=== PATIENT | male | born 1985 | race Caucasian/White ===

== ENCOUNTER → 2019-01-31 15:34 | Outpatient (CLI) | payer OTHER, SELFPAY ==
--- NOTE | 2019-01-31 15:35 | DI.RAD.S_ITS ---
PROCEDURE: XR FOOT RT MIN 3V INDICATIONS: heel pain TECHNIQUE: 3 views of the foot were acquired. COMPARISON: None. FINDINGS: Bones: No fractures or dislocations. No suspicious bony lesions. A small plantar calcaneal spur is present. Questionable erosive changes along the plantar aspect of the calcaneus just posterior to the spur. Soft tissues: No tibiotalar joint effusion. Achilles tendon appears normal. IMPRESSION: Mild inflammatory changes along the plantar surface of the calcaneus associated with spur. Dictated by: Zoraida Burrell M.D. on 01/31/2019 at 16:30 Approved by: Zoraida Burrell M.D. on 01/31/2019 at 16:31
== END ==
PROVIDERS: PCP Family Medicine; Visit Provider Family Medicine
DX: M79.671 Pain in right foot (principal); M77.31 Calcaneal spur, right foot
CPT/HCPCS: 73630

== ENCOUNTER 2019-04-13 09:16 | Emergency (ER) | payer OTHER, SELFPAY ==
[2019-04-13 09:20] VITALS: BP 121/72; PULSE 81; RESP 18; TEMP 37; O2SAT 99; BMI 22.5
--- NOTE | 2019-04-13 09:44 | DI.RAD.S_ITS ---
PROCEDURE: XR CHEST 2V INDICATIONS: CHEST TIGHTNESS NIGHT SWEATS TECHNIQUE: 2 views of the chest were acquired. COMPARISON: [facility], , CHEST 1 VIEW, 10/21/2016, 17:58. FINDINGS: Surgical changes and devices: None. Lungs and pleura: Lungs are clear. No pleural effusions or pneumothorax. Mediastinum: Mediastinal contours are normal. Heart size is normal. Bones and chest wall: No suspicious bony abnormalities. Soft tissues appear unremarkable. IMPRESSION: Normal for age, source of current chest tightness symptoms is not seen. Dictated by: Jaya Castillo M.D. on 04/13/2019 at 9:53 Approved by: Jaya Castillo M.D. on 04/13/2019 at 9:54
[2019-04-13 10:04] LABS: Add Manual Diff / Slide Review NO; Basophils Absolute Auto 0 /uL (0-100); Basophils Percent Auto 0.4 % (0-2); Eosinophils Absolute Auto 0 /uL (0-450); Eosinophils Percent Auto 0.5 % (2-4); Hematocrit 46.2 % (41-53); Hemoglobin 16.1 g/dL (13.5-17.5); Lymphocytes Absolute Auto 1100 /uL (1100-4500); Lymphocytes Percent Auto 10.8 % (25-40); Mean Corpuscular HGB Conc 34.9 % (30-36); Mean Corpuscular Hemoglobin 30.7 PG (26-34); Monocytes Absolute Auto 800 /uL (0-900); Monocytes Percent Auto 7.4 % (3-14); Neutrophils Absolute Auto 8300 /uL (1500-7000); Neutrophils Percent Auto 80.9 % (50-75); Platelet Count 155 X10^3/uL (150-400); Red Blood Cell Count 5.25 X10^6/uL (4.5-5.9); Red Cell Distribution Width 12.7 % (11.6-14.8); White Blood Cell Count 10.3 X10^3/uL (4.5-11.0)
--- NOTE | 2019-04-13 10:17 | ED.SKABFB ---
HPI - Skin/Abscess/Foreign Bdy General Chief complaint: Skin/Abscess/Foreign Body Stated complaint: Lump on neck, painful for over a week Time Seen by Provider: 04/13/19 09:33 Source: patient Mode of arrival: ambulatory Limitations: no limitations History of Present Illness HPI narrative: Patient presents with all swelling under his right chin. He has noted a lump there for about a month. He said it initially belted it went away he was seen by his PCP. However he has been having night sweats for the last month on and yesterday he started feeling this area again it has become more enlarged over night. He feels like sometimes it is difficult to swallow. He denies any sore throat. Sometimes he feels like his chest is tight but he denies any real fever no cough or shortness of breath. He denies any ear pain or sinus pain. Tylenol for it which has not been helping. He has a history of IBS a he does not like taking Motrin. He is feeling like he has body aches now or previously he did not feel that way. Onset (ago): month(s) (1) Location: neck (right submandibular) Severity: mild Relieving factors: none Exacerbating factors: none Related Data Home Medications Medication Instructions Recorded Confirmed No Known Home Medications 12/19/18 04/12/19 Allergies Allergy/AdvReac Type Severity Reaction Status Date / Time No Known Drug Allergies Allergy Verified 04/12/19 15:54 Review of Systems Review of Systems ROS Unobtainable: All systems reviewed & are unremarkable except as noted in HPI and below Constitutional Denies chills, Denies fever(s), Denies increased appetite, Denies lethargy, Reports night sweats, Denies poor appetite, Denies weakness, Denies weight gain and Denies weight loss ENT Ears, Nose, Mouth, and Throat: Reports as per HPI Respiratory Reports as per HPI, Denies cough, Denies stridor and Denies wheezing Gastrointestinal Gastrointestinal: Denies abdominal pain, Denies change in bowel habits, Denies diarrhea, Denies nausea and Denies vomiting Genitourinary Denies hematuria, Denies flank pain, Denies urinary incontinence and Denies urinary urgency Musculoskeletal Denies back pain, Denies muscle weakness, Denies numbness and Denies tingling Integumentary/Breasts Denies pruritus, Denies erythema, Denies rash and Denies wounds Neurologic Denies numbness, Denies tingling and Denies weakness Allergic/Immunologic Denies wheezing [facility] Medical History Asthma (Chronic ~1989) IBS (irritable bowel syndrome) (Chronic 2002) History of blood transfusion (Resolved 01/1983) Surgical History Anesthesia (Resolved) History of repair of anterior cruciate ligament of right knee (Resolved 09/2001) History of tonsillectomy (Resolved ~1989) Family History Father Age: 58 High cholesterol Grandfather Age: 80 Diabetes mellitus Heart disease High cholesterol Grandmother Age: 77 High cholesterol Mother Age: 58 High cholesterol Grandfather Age: 81 High cholesterol Grandmother Age: 80 High cholesterol Sister No problems noted. Social History marital status: Smoking Status: Never smoker alcohol intake: current (1-2 A MONTH ) substance use type: does not use Family History Father Age: 58 High cholesterol Grandfather Age: 80 Diabetes mellitus Heart disease High cholesterol Grandmother Age: 77 High cholesterol Mother Age: 58 High cholesterol Grandfather Age: 81 High cholesterol Grandmother Age: 80 High cholesterol Sister No problems noted. Social History marital status: Smoking Status: Never smoker alcohol intake: current (1-2 A MONTH ) substance use type: does not use Exam Initial Vital Signs Initial Vital Signs: Vital Signs Temperature 98.6 F 04/13/19 09:20 Pulse Rate 81 04/13/19 09:20 Respiratory Rate 18 04/13/19 09:20 Blood Pressure 121/72 04/13/19 09:20 Pulse Oximetry 99 04/13/19 09:20 GENERAL: Well-appearing, well-nourished and in no acute distress. HEENT: Head atraumatic,EOMI, pupils reactive, tender mobile right submandibular all lymph node. 1-2 cm in size. Airway patent EARS: Tympanic membranes visualized, no erythema or bulging, no hemotympanum PHARYNX: No erythema, no tonsillar exudate, no cervical lymphadenopathy CARDIOVASCULAR: Regular rate and rhythm without murmurs, rubs or gallops. RESPIRATORY: Breath sounds equal bilaterally, no wheezes rales or rhonchi. ABDOMEN: Soft, nontender. Normoactive bowel sounds all 4 quadrants. No guarding or rebound.s EXTREMITIES: Normal range of motion, no clubbing or edema. Neurovascularly intact NEUROLOGICAL: Alert and oriented x4.Normal gait and speech. Cranial nerves II through XII grossly intact. SKIN: Warm, dry, no laceration, no petechiae, no rashes or lesions. Course Orders Ordered: ED Orders 04/13/19 08:55 Complete Blood Count AUTO DIFF Stat Comprehensive Metabolic Panel Stat 04/13/19 09:44 XR chest 2V Stat Vital Signs - 8 hr 04/13/19 09:20 04/13/19 10:36 Temperature 98.6 F Pulse Rate 81 61 Respiratory Rate 18 16 Blood Pressure 121/72 Blood Pressure [Left Arm] 108/65 Pulse Oximetry 99 100 MDM - Skin/Abscess/Foreign Bdy Lab Data Attestation: I reviewed the patient's lab results. Result diagrams: 04/13/19 08:55 04/13/19 08:55 Lab Results 04/13/19 04/13/19 Range/Units 08:55 08:55 WBC 10.3 (4.5-11.0) X10^3/uL RBC 5.25 (4.5-5.9) X10^6/uL Hgb 16.1 (13.5-17.5) g/dL Hct 46.2 (41-53) % MCV 88.0 (80-100) fL MCH 30.7 (26-34) PG MCHC 34.9 (30-36) % RDW 12.7 (11.6-14.8) % Plt Count 155 (150-400) X10^3/uL Neut % (Auto) 80.9 H (50-75) % Lymph % (Auto) 10.8 L (25-40) % [place] % (Auto) 7.4 (3-14) % Eos % (Auto) 0.5 L (2-4) % Baso % (Auto) 0.4 (0-2) % Neut # (Auto) 8300 H (1701-1036) /uL Lymph # (Auto) 1100 (9629-8156) /uL [place] # (Auto) 800 (0-900) /uL Eos # (Auto) 0 (0-450) /uL Baso # (Auto) 0 (0-100) /uL Sodium 144 (137-145) mmol/L Potassium 4.8 (3.4-5.1) mmol/L Chloride 102 (98-107) mmol/L Carbon Dioxide 32 (22-32) mmol/L BUN 12 (9-20) mg/dL Creatinine 1.00 (0.66-1.25) mg/dL Estimated GFR > 60.0 (>60) mL/min BUN/Creatinine Ratio 12.0 (6-22) Glucose 98 (70-100) mg/dL Calcium 9.5 (8.4-10.2) mg/dL Total Bilirubin 1.7 H (0.2-1.3) mg/dL AST 34 (17-59) IU/L ALT 33 (21-72) IU/L Alkaline Phosphatase 66 (38-126) U/L Total Protein 7.9 (6.3-8.2) g/dL Albumin 4.8 (3.5-5.0) g/dL Globulin 3.1 (1.7-4.1) g/dL Albumin/Globulin Ratio 1.5 (1.0-2.8) Imaging Data Chest x-ray: Radiologist's impression: PROCEDURE: XR CHEST 2V INDICATIONS: CHEST TIGHTNESS NIGHT SWEATS TECHNIQUE: 2 views of the chest were acquired. COMPARISON: [facility], CHEST 1 VIEW, 10/21/2016, 17:58. FINDINGS: Surgical changes and devices: None. Lungs and pleura: Lungs are clear. No pleural effusions or pneumothorax. Mediastinum: Mediastinal contours are normal. Heart size is normal. Bones and chest wall: No suspicious bony abnormalities. Soft tissues appear unremarkable. IMPRESSION: Normal for age, source of current chest tightness symptoms is not seen. Dictated by: Jaya Castillo M.D. on 04/13/2019 at 9:53 MDM Narrative Medical decision making narrative: Overall patient does not appear septic or toxic. Lymph node is movable and tender to touch. At this time I think is more reactive. I recommended outpatient followup he actually has an appointment with his PCP tomorrow. He has an appointment already scheduled Discharge Plan Departure Patient Disposition: Home Clinical Impression: Lymphadenopathy Discharge Date/Time: 04/13/19 11:18 Interventions: ED Discharge Assessment Last Done: 04/13/19 11:18 Instructions: DI for Lymphadenopathy Activity Restrictions/Additional Instructions: *You have been diagnosed with lymphadenopathy *What to do: At this time blood work and x-ray are reassuring. No sign of infection. This is likely a reactive lymph node possible viral syndrome. If this continues you may require a biopsy please discuss with her PCP. *Continue to take medications as directed Ibuprofen 600 mg every 8 hours if needed for some mild pain it should help with the inflammation. *Follow up with your primary care provider in 2-3 days *Return to ER if you should have weight loss time more lymph nodes, inability to swallow or any new, worsening or concerning symptoms Prescriptions: No Action No Known Home Medications RF: 0 Referrals: Joseluis Jansen MD [Primary Care Provider] -
[2019-04-13 10:20] LABS: Alanine Aminotransferase 33 IU/L (21-72); Albumin 4.8 g/dL (3.5-5.0); Albumin Globulin Ratio 1.5 (1.0-2.8); Alkaline Phosphatase 66 U/L (38-126); Aspartate Aminotransferase 34 IU/L (17-59); Bilirubin Total 1.7 mg/dL (0.2-1.3); Blood Urea Nitrogen 12 mg/dL (9-20); Calcium 9.5 mg/dL (8.4-10.2); Carbon Dioxide 32 mmol/L (22-32); Chloride 102 mmol/L (98-107); Estimated Glomerular Filt Rate > 60.0 mL/min (>60); Globulin 3.1 g/dL (1.7-4.1); Glucose 98 mg/dL (70-100); HEMOLYSIS < 15 (0-50); Potassium 4.8 mmol/L (3.4-5.1); Sodium 144 mmol/L (137-145); Total Protein 7.9 g/dL (6.3-8.2)
[2019-04-13 10:36] VITALS: BP 108/65; PULSE 61; RESP 16; O2SAT 100
== END 2019-04-13 11:18 | disposition home or self-care (01) ==
PROVIDERS: Emergency Provider Emergency Medicine; PCP Family Medicine
DX: R59.1 Generalized enlarged lymph nodes (principal); R07.9 Chest pain, unspecified
CPT/HCPCS: 36415; 71046; 80053; 85025; 99282; 99284

== ENCOUNTER → 2019-04-17 09:17 | Outpatient (CLI) | payer OTHER, SELFPAY ==
--- NOTE | 2019-04-17 09:43 | DI.CT.S_ITS ---
PROCEDURE: CT SOFT TISSUE NECK WO CON INDICATIONS: RIGHT SALIVARY GLAND INFECTION TECHNIQUE: Non-contrast 3.0 mm axial sections acquired from the sella to the aortic arch. Additional oblique axial 3.0 mm sections acquired through the pharynx. 3 mm thick coronal and sagittal reformats were generated. For radiation dose reduction, the following was used: automated exposure control. COMPARISON: None. FINDINGS: Image quality: Excellent. Lymph nodes: There is a mass, potentially lymph node in the right submandibular region measuring 1.9 x 2.7 cm. There is extensive overlying edema with obscuration of well-defined fat planes. Edema extends the level of the thyroid cartilage caudally, and level of the maxillary teeth cranially. No other significant adenopathy in the neck is seen. Vessels: Non-opacified vessels appear normal in caliber. Neck spaces: The oropharynx, nasopharynx, and pharynx demonstrate no mucosal lesions. The vocal cords, false vocal cords, pyriform sinuses, epiglottis, vallecula, and tongue base all appear normal. Extramucosal spaces appear unremarkable. Glands: The contour of the right submandibular gland is not well-defined without IV contrast. The posterior portion appears normal. The anterior portion may be the enlarged mass seen in the submandibular region. The left submandibular gland appears normal. The parotid glands appear grossly normal, without stones. Thyroid gland is normal. Miscellaneous: Visualized brain and orbits appear normal. Lung apices appear clear. Superficial soft tissues appear normal. IMPRESSION: 1. Significantly enlarged probable right submandibular lymph node versus enlarged and bilobed right submandibular gland with moderate overlying edema. Anatomic margins or drainable fluid collection can not be well-defined without IV contrast. If there is persistence of swelling following appropriate treatment, examination with IV contrast is recommended. 2. No significant adenopathy. 3. Dentition appears normal. Dictated by: Zoraida Burrell M.D. on 04/17/2019 at 10:41 Approved by: Zoraida Burrell M.D. on 04/17/2019 at 10:54
== END ==
PROVIDERS: PCP Family Medicine; Visit Provider Family Medicine
DX: K11.20 Sialoadenitis, unspecified (principal); R59.0 Localized enlarged lymph nodes
CPT/HCPCS: 70490

== ENCOUNTER → 2019-10-26 09:33 | Outpatient (CLI) | payer OTHER, SELFPAY ==
[2019-10-26 10:29] LABS: Blood Urea Nitrogen 13 mg/dL (9-20); Calcium 9.3 mg/dL (8.4-10.2); Carbon Dioxide 32 mmol/L (22-32); Chloride 103 mmol/L (98-107); Estimated Glomerular Filt Rate > 60.0 mL/min (>60); Glucose 97 mg/dL (70-100); HEMOLYSIS < 15 (0-50); Potassium 4.5 mmol/L (3.4-5.1); Sodium 141 mmol/L (137-145)
[2019-10-26 10:33] LABS: Hemoglobin A1C% w Est Avg Glu 5.1 % (4.0-6.0)
== END ==
PROVIDERS: PCP Family Medicine; Visit Provider Family Medicine
DX: R35.8 Other polyuria (principal)
CPT/HCPCS: 36415; 80048; 83036

== ENCOUNTER → 2021-04-02 14:10 | Outpatient (CLI) | payer OTHER, SELFPAY ==
--- NOTE | 2021-04-02 14:11 | DI.RAD.S_ITS ---
PROCEDURE: XR WRIST LT MIN 3V INDICATIONS: L wrist injury, pain TECHNIQUE: 3 views of the wrist were acquired. COMPARISON: None. FINDINGS: Bones: No fractures or dislocations. No suspicious bony lesions. Scaphoid view: Scaphoid is intact. No evidence of osteonecrosis. Soft tissues: No suspicious soft tissue calcifications. IMPRESSION: No acute wrist fracture or dislocation. Dictated by: Jack Ramos M.D. on 04/02/2021 at 14:36 Approved by: Jack Ramos M.D. on 04/02/2021 at 14:41
== END ==
PROVIDERS: PCP Family Medicine; Referring Provider Physician Assistant; Visit Provider Physician Assistant
DX: S69.92XA Unspecified injury of left wrist, hand and finger(s), initial encounter (principal); X58.XXXA Exposure to other specified factors, initial encounter
CPT/HCPCS: 73110

== ENCOUNTER 2021-09-03 17:31 | Emergency (ER) | payer OTHER, SELFPAY ==
[2021-09-03 17:37] VITALS: BP 126/85; PULSE 59; RESP 12; TEMP 36.5; O2SAT 98; BMI 21.4
--- NOTE | 2021-09-03 17:39 | DI.RAD.S_ITS ---
PROCEDURE: XR CHEST 1V INDICATIONS: chest pain TECHNIQUE: One view of the chest was acquired. COMPARISON: [facility], CR, XR CHEST 2V, 04/13/2019, 9:46. FINDINGS: Surgical changes and devices: None. Lungs and pleura: Lungs are clear. No pleural effusions or pneumothorax. Mediastinum: Mediastinal contours appear normal. Heart size is normal. Bones and chest wall: No suspicious bony lesions. Overlying soft tissues appear unremarkable. IMPRESSION: No acute cardiopulmonary disease. Dictated by: Zoraida Burrell M.D. on 09/03/2021 at 18:14 Approved by: Zoraida Burrell M.D. on 09/03/2021 at 18:23
[2021-09-03 18:12] LABS: Add Manual Diff / Slide Review NO; Basophils Absolute Auto 0 /uL (0-100); Basophils Percent Auto 0.5 % (0-2); Eosinophils Absolute Auto 100 /uL (0-450); Eosinophils Percent Auto 1.5 % (2-4); Hematocrit 45.6 % (41-53); Hemoglobin 15.8 g/dL (13.5-17.5); INR 1.1 (0.9-1.3); Lymphocytes Absolute Auto 1700 /uL (1100-4500); Lymphocytes Percent Auto 37.2 % (25-40); Mean Corpuscular HGB Conc 34.6 % (30-36); Mean Corpuscular Volume 86.6 fL (80-100); Monocytes Absolute Auto 500 /uL (0-900); Monocytes Percent Auto 10.6 % (3-14); Neutrophils Absolute Auto 2300 /uL (1500-7000); Neutrophils Percent Auto 50.2 % (50-75); Platelet Count 138 X10^3/uL (150-400); Prothrombin Time 12.2 SECONDS (10.1-12.7); Red Blood Cell Count 5.27 X10^6/uL (4.5-5.9); Red Cell Distribution Width 12.6 % (11.6-14.8); White Blood Cell Count 4.6 X10^3/uL (4.5-11.0)
[2021-09-03 18:15] LABS: PTT Partial Thromboplastin Tim 33 SECONDS (26.4-36.2)
[2021-09-03 18:23] LABS: Alanine Aminotransferase 27 IU/L (<50); Albumin 4.9 g/dL (3.5-5.0); Albumin Globulin Ratio 1.6 (1.0-2.8); Alkaline Phosphatase 57 U/L (38-126); Aspartate Aminotransferase 30 IU/L (17-59); BUN Creatinine Ratio 15.1 (6-22); Bilirubin Total 1.9 mg/dL (0.2-1.3); Blood Urea Nitrogen 14 mg/dL (9-20); C-Reactive Protein Quant < 0.5 mg/dL (<1.0); Calcium 9.3 mg/dL (8.4-10.2); Carbon Dioxide 31 mmol/L (22-32); Chloride 101 mmol/L (98-107); Creatine Kinase 61 U/L (55-170); Estimated Glomerular Filt Rate > 60.0 mL/min (>60); Glucose 89 mg/dL (70-100); HEMOLYSIS < 15 (0-50); Lipase 120 U/L (23-300); Magnesium 2.2 mg/dL (1.6-2.3); Potassium 3.7 mmol/L (3.4-5.1); Sodium 140 mmol/L (137-145); Total Protein 7.9 g/dL (6.3-8.2)
[2021-09-03 18:31] LABS: D Dimer < 200 ng/mL (<230)
[2021-09-03 18:32] LABS: Troponin I < 0.012 ng/mL (0.01-0.034)
[2021-09-03 20:16] VITALS: BP 132/89; PULSE 66; RESP 18; O2SAT 100
[2021-09-03 21:33] VITALS: PULSE 65; RESP 17; O2SAT 99
[2021-09-03 21:42] VITALS: BP 131/74; PULSE 68; RESP 24; O2SAT 100
[2021-09-03 22:00] VITALS: BP 120/74; PULSE 68; RESP 21; O2SAT 100
[2021-09-03 22:30] VITALS: BP 117/70; PULSE 65; RESP 24; O2SAT 100
--- NOTE | 2021-09-03 22:36 | ED_ITS ---
HPI - Chest Pain General Chief Complaint: Chest Pain Stated Complaint: TIGHTNESS OF CHEST QUICK HEART BEAT Time Seen by Provider: 09/03/21 18:08 Source: patient Mode of arrival: Ambulatory History of Present Illness HPI narrative: Otherwise healthy 36-year-old gentleman with COVID infection diagnosed August 02. Getting back to work and has been increasing activities. Last week he noticed that he was able to do some yd work but was quite tired afterwards. This week he has tried some gentle jogging after working up to same distance is with walking and then noticed that he was having rapid heart rate for hours afterward. He had tried some plank exercises and again noted rapid heart rate for an extended period of time afterward. He is not complaining of fevers, cough, chills he is noting fatigue that continues to improve daily. No vomiting, diarrhea or dysuria. No headaches no orthopnea or dyspnea. Related Data Previous Rx's Medication Instructions Recorded fluticasone propionate 50 1 spray INTRANASAL BID #9.9 ml 10/30/20 mcg/actuation nasal spray,suspension (Flonase Allergy Relief) Allergies Allergy/AdvReac Type Severity Reaction Status Date / Time No Known Drug Allergies Allergy Verified 09/03/21 17:40 Review of Systems Review of Systems Narrative: Remainder of complete review of systems is otherwise unremarkable except for that included in the HPI. Patient History Medical History (Updated 09/03/21 @ 23:12 by Ranjana Francis MD) Asthma (~1989) COVID-19 History of blood transfusion (01/1983) IBS (irritable bowel syndrome) (2002) Surgical History Anesthesia History of repair of anterior cruciate ligament of right knee (09/2001) History of tonsillectomy (~1989) Family History Father Age: 61 High cholesterol Grandfather Age: 83 Diabetes mellitus Heart disease High cholesterol Grandmother Age: 80 High cholesterol Mother Age: 61 High cholesterol Grandfather Age: 84 High cholesterol Grandmother Age: 83 High cholesterol Sister No problems noted. Social History marital status: Smoking Status: Never smoker alcohol intake: current (1-2 A MONTH ) substance use type: does not use Smoking Status: Never smoker alcohol intake frequency: other Substance Use Type: does not use Exam Narrative Exam Narrative: General: Healthy appearing, in no acute distress. Able to give a complete and coherent history. Well-nourished well-developed HEENT: Moist mucous membranes, normal sclera with reactive pupils, Neck: No JVD, supple Respiratory: Lungs are clear to auscultation, no wheezing no rales no rhonchi. Full and symmetrical air movement Cardiac: Regular rate and rhythm no murmurs no bruits Abdomen: Soft, nontender, good bowel tones, no flank pain Skin: Warm and dry, no rashes Neurologic: Grossly neurologically intact with no obvious asymmetries or abnor malities Extremities: No trauma, well perfused Psych: Cooperative, appropriate insight and affect Initial Vital Signs Initial Vital Signs: Vital Signs Temperature 97.7 F 09/03/21 17:37 Pulse Rate 59 L 09/03/21 17:37 Respiratory Rate 12 09/03/21 17:37 Blood Pressure 126/85 09/03/21 17:37 Pulse Oximetry 98 09/03/21 17:37 Course Orders Ordered: ED Orders 09/03/21 17:39 XR chest 1V Stat EKG-12 Lead Stat 09/03/21 17:55 CRP [C-Reactive Protein Quant] Stat Complete Blood Count AUTO DIFF Stat Comprehensive Metabolic Panel Stat D Dimer Stat Lipase Stat Magnesium Stat Partial Thromboplastin Time Stat Prothrombin Time INR Stat Troponin & CK Cardiac Panel Stat Vital Signs Vital signs: Vital Signs - 8 hr 09/03/21 17:37 09/03/21 20:16 09/03/21 21:33 Temperature 97.7 F Pulse Rate 59 L 66 65 Respiratory Rate 12 18 17 Blood Pressure 126/85 132/89 Pulse Oximetry 98 100 99 09/03/21 21:42 09/03/21 22:00 09/03/21 22:30 Temperature Pulse Rate 68 68 65 Respiratory Rate 24 21 24 Blood Pressure 131/74 120/74 117/70 Pulse Oximetry 100 100 100 MDM - Chest Pain Lab Data Result diagrams: 09/03/21 17:55 09/03/21 17:55 Labs: Lab Results 09/03/21 09/03/21 09/03/21 Range/Units 17:55 17:55 17:55 WBC 4.6 (4.5-11.0) X10^3/uL RBC 5.27 (4.5-5.9) X10^6/uL Hgb 15.8 (13.5-17.5) g/dL Hct 45.6 (41-53) % MCV 86.6 (80-100) fL MCH 30.0 (26-34) PG MCHC 34.6 (30-36) % RDW 12.6 (11.6-14.8) % Plt Count 138 L (150-400) X10^3/uL Neut % (Auto) 50.2 (50-75) % Lymph % (Auto) 37.2 (25-40) % [place] % (Auto) 10.6 (3-14) % Eos % (Auto) 1.5 L (2-4) % Baso % (Auto) 0.5 (0-2) % Neut # (Auto) 2300 (6077-1547) /uL Lymph # (Auto) 1700 (7366-8088) /uL [place] # (Auto) 500 (0-900) /uL Eos # (Auto) 100 (0-450) /uL Baso # (Auto) 0 (0-100) /uL PT 12.2 (10.1-12.7) SECONDS INR 1.1 (0.9-1.3) APTT 33 (26.4-36.2) SECONDS D-Dimer < 200 (<230) ng/mL Sodium 140 (137-145) mmol/L Potassium 3.7 (3.4-5.1) mmol/L Chloride 101 (98-107) mmol/L Carbon Dioxide 31 (22-32) mmol/L BUN 14 (9-20) mg/dL Creatinine 0.93 (0.66-1.25) mg/dL Estimated GFR > 60.0 (>60) mL/min BUN/Creatinine Ratio 15.1 (6-22) Glucose 89 (70-100) mg/dL Calcium 9.3 (8.4-10.2) mg/dL Magnesium 2.2 (1.6-2.3) mg/dL Total Bilirubin 1.9 H (0.2-1.3) mg/dL AST 30 (17-59) IU/L ALT 27 (<50) IU/L Alkaline Phosphatase 57 (38-126) U/L Total Creatine Kinase 61 (55-170) U/L CK-MB (CK-2) TNP CK-MB (CK-2) Rel Index TNP Troponin I < 0.012 (0.01-0.034) ng/mL C-Reactive Protein < 0.5 (<1.0) mg/dL Total Protein 7.9 (6.3-8.2) g/dL Albumin 4.9 (3.5-5.0) g/dL Globulin 3.0 (1.7-4.1) g/dL Albumin/Globulin Ratio 1.6 (1.0-2.8) Lipase 120 (23-300) U/L Imaging Data Chest x-ray: Radiologist's Impression: FINDINGS:? ? Surgical changes and devices:? None.? ? Lungs and pleura:? Lungs are clear.? No pleural effusions or pneumothorax.? ? Mediastinum:? Mediastinal contours appear normal.? Heart size is normal.? ? Bones and chest wall:? No suspicious bony lesions.? Overlying soft tissues kathy ear unremarkable.? ? IMPRESSION:? No acute cardiopulmonary disease.? ? ? Dictated by: Zoraida Burrell M.D. on 09/03/2021 at 18:14 ? ? ECG Data Interpretation: Sinus rhythm at a rate of 61 Partial right bundle branch block No acute ischemic changes MDM Narrative Medical decision making narrative: 36-year-old otherwise healthy gentleman still having exertional dyspnea and palpitations after COVID-19 diagnosis 1 month ago. No evidence of acute coronar y syndrome, pericarditis, myocarditis, pneumothorax, bacterial superinfection, congestive heart failure or blood clots. Suspect that he is simply trying too much too soon and sure that with him. He is more than willing to slow down a bit and was simply looking for reassurance. Suggesting making sure that he was hydrating well before exercising to try to avoid the extended periods elevated heart rate and continuing to hydrate well throughout the day. Suggested he back down little bit on overall exertion and allow his body to completely recover. Questions are answered and he is safe for home discharge Discharge Plan Departure Patient Disposition: Home Clinical Impression: Post-COVID chronic fatigue, Heart palpitations Instructions: DI for Arrhythmias Activity Restrictions/Additional Instructions: Thank you for coming in today I am not seeing any life-threatening explanations for the elevated heart rate your seeing after exercise this week. Specifically, there is no evidence of a bacterial pneumonia, no heart attack or heart attack like syndrome, no blood clots in your lungs, no inflammation around your heart, no inflammation of your heart and no evidence of a collapsed lung. I suspect that you some clear trying a bit too much too soon. I would recommend making sure that you hydrate well before you exercise as well as throughout the day. I know it is challenging but slowing down the exercise a bit will go a long way in getting back to the exercise levels that you were out prior to COVID. I wish you the best Prescriptions: No Action fluticasone propionate [Flonase Allergy Relief] 50 mcg/actuation spray,suspension 1 spray intranasal BID Qty: 9.9 1RF Rx Instructions: administer one spray into each nostril twice daily. Referrals: Joseluis Jansen MD [Primary Care Provider] -
== END 2021-09-03 23:18 | disposition home or self-care (01) ==
PROVIDERS: Emergency Medicine; Emergency Provider Emergency Medicine; PCP Family Medicine
DX: R07.9 Chest pain, unspecified (principal); R53.83 Other fatigue; R00.2 Palpitations; Z86.16 Personal history of COVID-19
CPT/HCPCS: 36415; 71045; 80053; 82550; 83690; 83735; 84484; 85025; 85379; 85610; 85730; 86140; 93005; 99284

== ENCOUNTER → 2022-11-04 16:19 | Outpatient (CLI) | payer OTHER, SELFPAY ==
--- NOTE | 2022-11-04 16:21 | DI.RAD.S_ITS ---
PROCEDURE: XR SHOULDER LT MIN 2V INDICATIONS: Left shoulder pain/strain TECHNIQUE: 3 views of the shoulder were acquired. COMPARISON: None. FINDINGS: Bones: No fractures or dislocations. No suspicious bony lesions. Visualized ribs appear intact. Soft tissues: No suspicious soft tissue calcifications. IMPRESSION: No trauma found. Dictated by: Jaya Castillo M.D. on 11/04/2022 at 17:09 Approved by: Jaya Castillo M.D. on 11/04/2022 at 17:09
== END ==
PROVIDERS: PCP Family Medicine; Referring Provider Physician Assistant; Visit Provider Physician Assistant
DX: M25.512 Pain in left shoulder (principal)
CPT/HCPCS: 73030

== ENCOUNTER → 2022-11-25 09:22 | Outpatient (CLI) | payer OTHER, SELFPAY ==
[2022-11-25 10:17] LABS: Influenza A - CEPHEID Flu A NEGATIVE (NEGATIVE); Influenza B - CEPHEID Flu B NEGATIVE (NEGATIVE); Respiratory Syncytial Virus Negative (Negative)
[2022-11-25 10:20] LABS: COVID-19 CEPHEID 4-PLEX PCR Negative (Negative)
== END ==
PROVIDERS: PCP Family Medicine; Visit Provider Registered Nurse
DX: R09.81 Nasal congestion (principal); Z20.822 Contact with and (suspected) exposure to COVID-19
CPT/HCPCS: 0241U

== ENCOUNTER 2023-03-09 09:49 | Emergency (ER) | payer OTHER, SELFPAY ==
[2023-03-09 09:53] VITALS: BP 115/74; PULSE 68; RESP 15; TEMP 37; O2SAT 98
--- NOTE | 2023-03-09 09:59 | DI.RAD.S_ITS ---
PROCEDURE: XR CHEST 1V INDICATIONS: dizziness and blurry vision TECHNIQUE: One view of the chest was acquired. COMPARISON: [facility], CR, XR CHEST 1V, 09/03/2021, 17:50. FINDINGS: Surgical changes and devices: None. Lungs and pleura: Lungs are clear. No pleural effusions or pneumothorax. Mediastinum: Mediastinal contours appear normal. Heart size is normal. Bones and chest wall: No suspicious bony lesions. Overlying soft tissues appear unremarkable. IMPRESSION: No acute cardiopulmonary abnormalities or focal airspace disease. Dictated by: Hieu Abel M.D. on 03/09/2023 at 10:26 Approved by: Hieu Abel M.D. on 03/09/2023 at 10:26
--- NOTE | 2023-03-09 10:05 | ED.DIZZY ---
HPI - Dizziness General Chief Complaint: Dizziness Stated Complaint: Monday, dizzy spells, can't walk, can't see Time Seen by Provider: 03/09/23 09:58 Source: patient Mode of arrival: Wheelchair History of Present Illness HPI Narrative: 38-year-old male nonsmoker with history of seasonal allergies presents with his in the chief complaint of gradually worsening dizziness over the past few days. He denies any recent trauma but does state that a few months ago he was diagnosed with a concussion. He is had no headache no fever, no neck pain. He states that he has significant dizziness which he describes as the room spinning which is significantly worsened when he turns his head. He experiences relief if he sits still and if he keeps his eyes closed. He denies any numbness, tingling or weakness of his extremities, he has no chest pain, palpitations or shortness of breath. He denies any new medications or dietary change. He does admit that he has at times have nasal congestion and some sense of allergies. Related Data Previous Rx's Medication Instructions Recorded ipratropium bromide 42 mcg (0.06 2 spray intranasal TID PRN allergy 01/10/23 %) nasal spray symptoms #15 mL meclizine 25 mg tablet 25 mg PO BID-TID PRN dizziness #14 03/09/23 tabs Allergies Allergy/AdvReac Type Severity Reaction Status Date / Time No Known Drug Allergies Allergy Verified 03/09/23 09:53 Review of Systems Review of Systems Narrative: GENERAL: Denies chills, fatigue, malaise, fever, sweats. HEENT: See HPI RESPIRATORY: Denies dyspnea, cough, wheezing, hemoptysis, sputum. CARDIOVASCULAR: Denies chest pain, palpitations, orthopnea, edema, GASTROINTESTINAL: Denies nausea, vomiting, abdominal pain, diarrhea, constipation, melena. : Denies dysuria, frequency, incontinence, hematuria, urinary retention. MUSCULOSKELETAL: denies weakness, joint pain, or bony pain SKIN: Denies rash, skin lesions, or other NEUROLOGIC: See HPI PSYCHIATRIC: No concerning psychosocial issues. 12 point review of systems is negative except for those stated above Patient History Medical History Asthma (~1989) COVID-19 History of blood transfusion (01/1983) IBS (irritable bowel syndrome) (2002) Surgical History Anesthesia History of repair of anterior cruciate ligament of right knee (09/2001) History of tonsillectomy (~1989) Family History Father Age: 62 High cholesterol Grandfather Age: 84 Diabetes mellitus Heart disease High cholesterol Grandmother Age: 81 High cholesterol Mother Age: 62 High cholesterol Grandfather Age: 85 High cholesterol Grandmother Age: 84 High cholesterol Sister No problems noted. Social History marital status: Smoking Status: Never smoker alcohol intake: current (1-2 A MONTH ) substance use type: does not use Smoking Status: Never smoker alcohol intake frequency: other Substance Use Type: does not use Exam Narrative Exam Narrative: GENERAL: [38] year old patient appears stated age. Well-developed patient, in mild distress. HEAD: Atraumatic. Normocephalic. EYES: Pupils equal round and reactive. Extraocular motions intact. No scleral icterus. No injection or drainage. Lateral gaze nystagmus with fast wish to the right, most notable when turning head to the right, also reproducible and turning head to the left, fades after 1-2 minutes ENT: Nose without bleeding, purulent drainage. Throat without erythema, tonsillar hypertrophy or exudate. Clear postnasal drainage NECK: Trachea midline. Non tender CARDIOVASCULAR: Regular rate and rhythm without murmurs, gallops, or rubs. RESPIRATORY: Clear to auscultation. Breath sounds equal bilaterally. No wheezes, rales, or rhonchi. GASTROINTESTINAL: Abdomen soft, non-tender, nondistended. EXTREMITIES: No edema or joint tenderness. BACK: Nontender without deformity or crepitance. No flank tenderness. NEURO: AOx3. SKIN: No rash or erythema of visible areas NIH Stroke Scale 1a. LOC: Patient is alert and keenly responsive (0) 1b. LOC Questions: Patient answers both LOC questions accurately (0) 1c. LOC Commands: Patient performs both tasks correctly (0) 2. Best Gaze: Normal (0) 3. Visual: No visual loss (0) 4. Facial palsy: Normal symmetrical movements (0) 5. Motor arm: No drift (0) 6. Motor leg: No drift (0) 7. Limb ataxia: Absent (0) 8. Sensory: Normal (0) 9. Best language: No aphasia; normal (0) 10. Dysarthria: Normal (0) 11. Extinction and inattention: No abnormality (0) NIHSS: 0 Initial Vital Signs Initial Vital Signs: Vital Signs Temperature 98.6 F 03/09/23 09:53 Pulse Rate 68 03/09/23 09:53 Respiratory Rate 15 03/09/23 09:53 Blood Pressure 115/74 03/09/23 09:53 Pulse Oximetry 98 03/09/23 09:53 Oxygen Delivery Method Room Air 03/09/23 09:53 Course Orders Ordered: Discontinued Medications Aspirin (Aspirin 81 Mg Chew Tab) 324 mg PO NOW ONE Stop: 03/09/23 10:00 Last Admin: 03/09/23 11:16 Dose: Not Given Documented By: KELLY Sodium Chloride (Normal Saline 0.9%) 1,000 mls @ 1,000 mls/hr IV BOLUS ONE Stop: 03/09/23 11:05 Last Infusion: 03/09/23 11:16 Dose: 0 mls/hr Documented By: Admin: 03/09/23 10:27 Dose: 1,000 mls/hr Documented By: KELLY Meclizine HCl (Meclizine Hcl 12.5 Mg Tablet) 50 mg PO NOW ONE Stop: 03/09/23 10:07 Last Admin: 03/09/23 10:20 Dose: 50 mg Documented By: KELLY Reevaluation(s) Reevaluation #1: Significant though not complete improvement after above-stated therapies Vital Signs Vital signs: Vital Signs - 8 hr 03/09/23 09:53 Temperature 98.6 F Pulse Rate 68 Respiratory Rate 15 Blood Pressure 115/74 Pulse Oximetry 98 Oxygen Delivery Method Room Air MDM - Dizziness Lab Data 03/09/23 10:02 03/09/23 10:02 Labs: Lab Results 03/09/23 03/09/23 03/09/23 Range/Units 10:02 10:02 10:02 WBC 4.5 (4.5-11.0) X10^3/uL RBC 5.29 (4.5-5.9) X10^6/uL Hgb 16.2 (13.5-17.5) g/dL Hct 46.3 (41-53) % MCV 87.5 (80-100) fL MCH 30.6 (26-34) PG MCHC 35.0 (30-36) % RDW 13.1 (11.6-14.8) % Plt Count 157 (150-400) X10^3/uL Neut % (Auto) 57.8 (50-75) % Lymph % (Auto) 31.3 (25-40) % Door % (Auto) 8.3 (3-14) % Eos % (Auto) 2.0 (2-4) % Baso % (Auto) 0.6 (0-2) % Neut # (Auto) 2600 (2979-6117) /uL Lymph # (Auto) 1400 (1340-4837) /uL Door # (Auto) 400 (0-900) /uL Eos # (Auto) 100 (0-450) /uL Baso # (Auto) 0 (0-100) /uL PT 11.7 (10.1-12.7) SECONDS INR 1.0 (0.9-1.3) APTT 32 (26-36) SECONDS Sodium 141 (137-145) mmol/L Potassium 3.9 (3.4-5.1) mmol/L Chloride 104 (98-107) mmol/L Carbon Dioxide 31 (22-32) mmol/L BUN 11 (9-20) mg/dL Creatinine 0.95 (0.66-1.25) mg/dL Estimated GFR > 60 (>60) mL/min BUN/Creatinine Ratio 11.6 (6-22) Glucose 103 H (70-100) mg/dL Calcium 8.9 (8.4-10.2) mg/dL Magnesium 2.2 (1.6-2.3) mg/dL Total Bilirubin 1.9 H (0.2-1.3) mg/dL AST 28 (17-59) IU/L ALT 27 (<50) IU/L Alkaline Phosphatase 59 (38-126) U/L Total Creatine Kinase 76 (55-170) U/L CK-MB (CK-2) TNP CK-MB (CK-2) Rel Index TNP Troponin I < 0.012 (0.01-0.034) ng/mL Total Protein 7.4 (6.3-8.2) g/dL Albumin 4.6 (3.5-5.0) g/dL Globulin 2.8 (1.7-4.1) g/dL Albumin/Globulin Ratio 1.6 (1.0-2.8) Lipase 89 (23-300) U/L MDM Narrative Medical decision making narrative: CC: 38-year-old male with dizziness Complicating co-morbidities: None noted Data collected from: Patient Medical records reviewed: Prior notes reviewed in our EMR Differential considered, but not limited to: Peripheral vertigo does including BPPV, labyrinthitis versus traumatic BPPV versus electrolyte abnormality, dehydration, stroke, cardiac disease versus other Exam documented above, pertinent findings include: Well-hydrated and alert, reproducible and fatigable vertigo with associated horizontal nystagmus with fast twitch to the right, no other neurologic symptoms Lab Test results independently reviewed as above. Pertinent findings: No significant abnormal findings requiring specific intervention Independently reviewed EKG as above Imaging studies independently reviewed: Head CT unremarkable Scores Used: NIHSS Treatments: Meclizine Re-evaluations: improved, but not completely Discussion: Patient with reproducible dizziness in the absence of other neurologic symptoms. Multiple diagnoses considered as noted above. Peripheral vertigo the primary focused given reproducibility, fatigability, noted horizontal nystagmus and improvement with fluids and meclizine. His labs and imaging are very reassuring. Other diagnoses, primarily posterior stroke discussed at length at the bedside. We discussed that this is on my rate are but a much lower likelihood given his history, physical and response to therapies. We did discuss the risks and benefits of further workup including the potential need for MRI, echocardiogram and hospitalization, the fact that if it were this diagnosis his symptoms are improving, mild at worst, and we are well outside of any interventional window. This all being said we elect to hold the course and continue treating for peripheral vertigo, he is given extensive return precautions including worsening of current symptoms, additional neurologic symptoms including blurred vision, trouble speech, facial weakness, ataxia among others. He has a local primary care provider and will follow closely Disposition: see below, along with detailed discharge instructions that have been reviewed with patient as well as indications for ED re-evaluation and additional outpatient follow up Discharge Plan Departure Patient Disposition: Home Clinical Impression: Peripheral vertigo Instructions: DI for Vertigo Activity Restrictions/Additional Instructions: *You have been diagnosed with [dizziness related to peripheral vertigo. As we discussed your history and physical exam are very reassuring. Your labs and imaging are also unremarkable and there is no evidence of electrolyte abnormality, bleeding in your brain or other significant finding that requires a specific and immediate intervention] *What to do: *Please continue to take your regular medications as directed. [x ] New medication prescriptions sent to your pharmacy: [ [facility]] [ ] New medication written as a paper prescription [ ] No new medications given *Please follow up with your primary care provider in 2-3 days, call for an appointment. Let them know you were seen in the Emergency Department and that we ask that you be seen in follow up. We will electronically transmit a record of today's note if your PCP is in our system Also, as we discussed it would be reasonable to follow up with Dr. Rubio at [facility]. I will electronically transmitted a copy of today's note to their office as well. *Return to Emergency Department if you should have any new, worsening or concerning symptoms, such as [fever greater than 101 F, shaking chills, worsening pain, persistent vomiting or other bothersome symptoms] Prescriptions: New meclizine 25 mg tablet 25 mg PO BID-TID PRN (Reason: dizziness) Qty: 14 0RF No Action ipratropium bromide 42 mcg (0.06 %) spray,non-aerosol 2 spray intranasal TID PRN (Reason: allergy symptoms) Qty: 15 0RF Rx Instructions: administer into each nostril Referrals: Saravanan Rubio MD [Physician] - Joseluis Jansen MD [Primary Care Provider] - Stand Alone Forms: Patient Portal/API
--- NOTE | 2023-03-09 10:06 | DI.CT.S_ITS ---
PROCEDURE: CT HEAD/BRAIN WO CON INDICATIONS: dizziness TECHNIQUE: Noncontrast 4.5 mm thick angled axial sections acquired from the foramen magnum to the vertex, with coronal and sagittal reformats. For radiation dose reduction, the following was used: automated exposure control, adjustment of mA and/or kV according to patient size. COMPARISON: None. FINDINGS: Image quality: Excellent. CSF spaces: Basal cisterns are patent. No extra-axial fluid collections. Ventricles are normal in size and shape. Brain: No midline shift. No intracranial masses or hemorrhage. [place]pe[place]-white matter interface is normal. Skull and face: Calvarium and visualized facial bones are intact, without suspicious lesions. Sinuses: Visualized sinuses and mastoids are clear. IMPRESSION: CT head without acute intracranial abnormalities. No mass or mass effect visualized. Dictated by: Hieu Abel M.D. on 03/09/2023 at 10:26 Approved by: Hieu Abel M.D. on 03/09/2023 at 10:28
[2023-03-09 10:19] LABS: Prothrombin Time 11.7 SECONDS (10.1-12.7)
[2023-03-09 10:20] LABS: Add Manual Diff / Slide Review NO; Basophils Absolute Auto 0 /uL (0-100); Basophils Percent Auto 0.6 % (0-2); Eosinophils Absolute Auto 100 /uL (0-450); Hematocrit 46.3 % (41-53); Hemoglobin 16.2 g/dL (13.5-17.5); Lymphocytes Absolute Auto 1400 /uL (1100-4500); Lymphocytes Percent Auto 31.3 % (25-40); Mean Corpuscular Hemoglobin 30.6 PG (26-34); Mean Corpuscular Volume 87.5 fL (80-100); Monocytes Absolute Auto 400 /uL (0-900); Monocytes Percent Auto 8.3 % (3-14); Neutrophils Absolute Auto 2600 /uL (1500-7000); Neutrophils Percent Auto 57.8 % (50-75); Platelet Count 157 X10^3/uL (150-400); Red Blood Cell Count 5.29 X10^6/uL (4.5-5.9); Red Cell Distribution Width 13.1 % (11.6-14.8); White Blood Cell Count 4.5 X10^3/uL (4.5-11.0)
[2023-03-09] MEDS: MECLIZINE HCL 12.5 MG TABLET 50 MG PO (10:20)
[2023-03-09 10:26] LABS: Alanine Aminotransferase 27 IU/L (<50); Albumin 4.6 g/dL (3.5-5.0); Albumin Globulin Ratio 1.6 (1.0-2.8); Alkaline Phosphatase 59 U/L (38-126); Aspartate Aminotransferase 28 IU/L (17-59); BUN Creatinine Ratio 11.6 (6-22); Bilirubin Total 1.9 mg/dL (0.2-1.3); Blood Urea Nitrogen 11 mg/dL (9-20); Calcium 8.9 mg/dL (8.4-10.2); Carbon Dioxide 31 mmol/L (22-32); Chloride 104 mmol/L (98-107); Creatine Kinase 76 U/L (55-170); Estimated Glomerular Filt Rate > 60 mL/min (>60); Globulin 2.8 g/dL (1.7-4.1); Glucose 103 mg/dL (70-100); HEMOLYSIS < 15 (0-50); Lipase 89 U/L (23-300); Magnesium 2.2 mg/dL (1.6-2.3); Potassium 3.9 mmol/L (3.4-5.1); Sodium 141 mmol/L (137-145); Total Protein 7.4 g/dL (6.3-8.2)
[2023-03-09] MEDS: SODIUM CHLORIDE 0.9% 1,000 ML 1000 ML IV (10:27)
[2023-03-09 10:36] LABS: Troponin I < 0.012 ng/mL (0.01-0.034)
[2023-03-09 10:39] LABS: PTT Partial Thromboplastin Tim 32 SECONDS (26-36)
== END 2023-03-09 12:15 | disposition home or self-care (01) ==
PROVIDERS: Emergency Provider Emergency Medicine; PCP Family Medicine
DX: H81.399 Other peripheral vertigo, unspecified ear (principal); I45.10 Unspecified right bundle-branch block
CPT/HCPCS: 70450; 71045; 80053; 82550; 83690; 83735; 84484; 85025; 85610; 85730; 93005; 93010; 99284

== ENCOUNTER 2023-09-09 22:39 | Emergency (ER) | payer OTHER, SELFPAY ==
[2023-09-09 22:49] VITALS: BP 144/86; PULSE 69; RESP 18; TEMP 36.9; O2SAT 99; BMI 21.9
--- NOTE | 2023-09-09 22:54 | DI.RAD.S_ITS ---
PROCEDURE: XR CHEST 1V INDICATIONS: Chest pain TECHNIQUE: One view of the chest was acquired. COMPARISON: [facility], CR, XR CHEST 1V, 03/09/2023, 9:56. [facility], CR, XR CHEST 1V, 09/03/2021, 17:50. FINDINGS: Surgical changes and devices: None. Lungs and pleura: Lungs are clear. No pleural effusions or pneumothorax. Mediastinum: Mediastinal contours appear normal. Heart size is normal. Bones and chest wall: No suspicious bony lesions. Overlying soft tissues appear unremarkable. IMPRESSION: No acute cardiopulmonary abnormality is seen. Approved by: Henok Nolen M.D. on 09/09/2023 at 23:15
[2023-09-09 23:32] VITALS: PULSE 60; O2SAT 97
--- NOTE | 2023-09-09 23:33 | ED_ITS ---
HPI - Arrhythmia/Palpitations General Chief Complaint: Arrhythmia/Palpitations Stated Complaint: Rapid heart rate Time Seen by Provider: 09/09/23 22:51 Source: patient Mode of arrival: Ambulatory History of Present Illness HPI narrative: Patient is a 38-year-old male. Was at his normal state of health. Was sitting on the couch watching TV when he had a fairly sudden onset of palpitations. He also states he then developed some sharp pain that radiated to his left armpit. No lightheadedness. Never had any symptoms like this before. They have since improved/resolved. Lasted approximately 30 minutes. Has not noticed any exercise intolerance recently. No fevers. No shortness of breath. No swelling in his legs. Related Data Previous Rx's Medication Instructions Recorded amoxicillin 875 mg tablet 875 mg PO BID #20 tabs 08/24/23 Allergies Allergy/AdvReac Type Severity Reaction Status Date / Time No Known Drug Allergies Allergy Verified 08/24/23 15:39 Review of Systems Constitutional Constitutional: Reports system reviewed and no additional complaints, except as documented Cardiovascular Cardiovascular: Reports system reviewed and no additional complaints, except as documented Respiratory Respiratory: Reports system reviewed and no additional complaints, except as documented Gastrointestinal Gastrointestinal: Reports system reviewed and no additional complaints, except as documented Musculoskeletal Musculoskeletal: Reports system reviewed and no additional complaints, except as documented Integumentary/Breasts Skin/Breast: Reports system reviewed and no additional complaints, except as documented Hematologic/Lymphatic On Anticoagulants: No Patient History Medical History COVID-19 Asthma (~1989) IBS (irritable bowel syndrome) (2002) History of blood transfusion (01/1983) Surgical History Anesthesia History of repair of anterior cruciate ligament of right knee (09/2001) History of tonsillectomy (~1989) Family History Father Age: 63 High cholesterol Grandfather Age: 85 Diabetes mellitus Heart disease High cholesterol Grandmother Age: 82 High cholesterol Mother Age: 63 High cholesterol Grandfather Age: 86 High cholesterol Grandmother Age: 85 High cholesterol Sister No problems noted. Social History marital status: Smoking Status: Never smoker alcohol intake: current (1-2 A MONTH ) substance use type: does not use Smoking Status: Never smoker alcohol intake frequency: other Substance Use Type: does not use Exam Initial Vital Signs Initial Vital Signs: Vital Signs Temperature 98.5 F 09/09/23 22:49 Pulse Rate 69 09/09/23 22:49 Respiratory Rate 18 09/09/23 22:49 Blood Pressure 144/86 H 09/09/23 22:49 Pulse Oximetry 99 09/09/23 22:49 Oxygen Delivery Method Room Air 09/09/23 22:49 HENMT Head: normal to inspection and normocephalic Resp Effort & Inspection: normal respiratory effort Auscultation: clear to auscultation bilaterally Cardio Rate: regular rate Rhythm: regular rhythm Skin General: no rashes or lesions noted Neuro General: patient alert, patient awake, patient oriented x3 and moves all extremities Extrem General: normal to inspection and capillary refill normal Course Orders Ordered: ED Orders 09/09/23 22:51 EKG-12 Lead Stat 09/09/23 22:54 XR chest 1V Stat 09/09/23 23:25 Complete Blood Count AUTO DIFF Stat Comprehensive Metabolic Panel Stat Lipase Stat Troponin & CK Cardiac Panel Stat Vital Signs Vital signs: Vital Signs - 8 hr 09/09/23 22:49 09/09/23 23:32 09/10/23 00:00 Temperature 98.5 F Pulse Rate 69 60 Respiratory Rate 18 Blood Pressure 144/86 H 111/67 Pulse Oximetry 99 97 Oxygen Delivery Method Room Air 09/10/23 00:00 Temperature Pulse Rate 60 Respiratory Rate 22 Blood Pressure Pulse Oximetry 98 Oxygen Delivery Method MDM - Arrhythmia/Palpitations Lab Data Attestation: I reviewed the patient's lab results. 09/09/23 23:25 09/09/23 23:25 Labs: Lab Results 09/09/23 Range/Units 23:25 WBC 5.1 (4.5-11.0) X10^3/uL RBC 4.87 (4.5-5.9) X10^6/uL Hgb 14.7 (13.5-17.5) g/dL Hct 42.4 (41-53) % MCV 87.2 (80-100) fL MCH 30.3 (26-34) PG MCHC 34.7 (30-36) % RDW 12.6 (11.6-14.8) % Plt Count 152 (150-400) X10^3/uL Neut % (Auto) 52.3 (50-75) % Lymph % (Auto) 34.1 (25-40) % [place] % (Auto) 9.4 (3-14) % Eos % (Auto) 3.5 (2-4) % Baso % (Auto) 0.7 (0-2) % Neut # (Auto) 2700 (8568-3123) /uL Lymph # (Auto) 1800 (7343-3686) /uL [place] # (Auto) 500 (0-900) /uL Eos # (Auto) 200 (0-450) /uL Baso # (Auto) 0 (0-100) /uL Sodium 138 (137-145) mmol/L Potassium 3.8 (3.4-5.1) mmol/L Chloride 103 (98-107) mmol/L Carbon Dioxide 29 (22-32) mmol/L BUN 14 (9-20) mg/dL Creatinine 1.02 (0.66-1.25) mg/dL Estimated GFR > 60 (>60) mL/min BUN/Creatinine Ratio 13.7 (6-22) Glucose 112 H (70-100) mg/dL Calcium 9.2 (8.4-10.2) mg/dL Total Bilirubin 1.3 (0.2-1.3) mg/dL AST 31 (17-59) IU/L ALT 23 (<50) IU/L Alkaline Phosphatase 63 (38-126) U/L Total Creatine Kinase 110 (55-170) U/L Troponin I 0.012 (0.01-0.034) ng/mL Total Protein 6.9 (6.3-8.2) g/dL Albumin 4.3 (3.5-5.0) g/dL Globulin 2.6 (1.7-4.1) g/dL Albumin/Globulin Ratio 1.7 (1.0-2.8) Lipase 190 (23-300) U/L Imaging Data Chest x-ray: Radiologist's Impresson: PROCEDURE: XR CHEST 1V INDICATIONS: Chest pain TECHNIQUE: One view of the chest was acquired. COMPARISON: [facility], XR CHEST 1V, 03/09/2023, 9:56. [facility], XR CHEST 1V, 09/03/2021, 17:50. FINDINGS: Surgical changes and devices: None. Lungs and pleura: Lungs are clear. No pleural effusions or pneumothorax. Mediastinum: Mediastinal contours appear normal. Heart size is normal. Bones and chest wall: No suspicious bony lesions. Overlying soft tissues appear unremarkable. IMPRESSION: No acute cardiopulmonary abnormality is seen. ECG Data Attestation: I personally reviewed and interpreted this ECG as follows: Interpretation: Sinus rhythm Ventricular rate is 63 Normal axis Normal QRS No ST T wave changes MDM Narrative Medical decision making narrative: Workup in the emergency department is unremarkable. Labs unremarkable. Has been asymptomatic since arrival here. Sinus rhythm on the EKG. We did discuss the issue with making a definitive diagnosis in the setting of him not having any symptoms. Will have him contact his primary doctor for follow-up to discuss the indications for a Holter monitor. We discussed return precautions and follow-up instructions. Expressed understanding and agreement with plan. Discharge Plan Departure Patient Disposition: Home Clinical Impression: Palpitations Instructions: DI for Palpitations Activity Restrictions/Additional Instructions: I do recommend that you contact your primary care doctor for a follow-up. Return to the emergency department for new or worsening symptoms like we discussed Prescriptions: No Action amoxicillin 875 mg tablet 875 mg PO BID Qty: 20 0RF Referrals: Joseluis Jansen MD [Primary Care Provider] - Stand Alone Forms: Patient Portal/API
[2023-09-09 23:40] LABS: Add Manual Diff / Slide Review NO; Basophils Absolute Auto 0 /uL (0-100); Basophils Percent Auto 0.7 % (0-2); Eosinophils Absolute Auto 200 /uL (0-450); Eosinophils Percent Auto 3.5 % (2-4); Hematocrit 42.4 % (41-53); Hemoglobin 14.7 g/dL (13.5-17.5); Lymphocytes Absolute Auto 1800 /uL (1100-4500); Lymphocytes Percent Auto 34.1 % (25-40); Mean Corpuscular HGB Conc 34.7 % (30-36); Mean Corpuscular Hemoglobin 30.3 PG (26-34); Mean Corpuscular Volume 87.2 fL (80-100); Monocytes Absolute Auto 500 /uL (0-900); Monocytes Percent Auto 9.4 % (3-14); Neutrophils Absolute Auto 2700 /uL (1500-7000); Neutrophils Percent Auto 52.3 % (50-75); Platelet Count 152 X10^3/uL (150-400); Red Blood Cell Count 4.87 X10^6/uL (4.5-5.9); Red Cell Distribution Width 12.6 % (11.6-14.8); White Blood Cell Count 5.1 X10^3/uL (4.5-11.0)
[2023-09-09 23:46] LABS: Alanine Aminotransferase 23 IU/L (<50); Albumin 4.3 g/dL (3.5-5.0); Albumin Globulin Ratio 1.7 (1.0-2.8); Alkaline Phosphatase 63 U/L (38-126); Aspartate Aminotransferase 31 IU/L (17-59); BUN Creatinine Ratio 13.7 (6-22); Bilirubin Total 1.3 mg/dL (0.2-1.3); Blood Urea Nitrogen 14 mg/dL (9-20); Calcium 9.2 mg/dL (8.4-10.2); Carbon Dioxide 29 mmol/L (22-32); Chloride 103 mmol/L (98-107); Creatine Kinase 110 U/L (55-170); Estimated Glomerular Filt Rate > 60 mL/min (>60); Globulin 2.6 g/dL (1.7-4.1); Glucose 112 mg/dL (70-100); HEMOLYSIS 43 (0-50); Lipase 190 U/L (23-300); Potassium 3.8 mmol/L (3.4-5.1); Sodium 138 mmol/L (137-145); Total Protein 6.9 g/dL (6.3-8.2)
[2023-09-09 23:57] LABS: Troponin I 0.012 ng/mL (0.01-0.034)
[2023-09-10] VITALS: BP 111/67; PULSE 60; RESP 22; O2SAT 98
== END 2023-09-10 00:09 | disposition home or self-care (01) ==
PROVIDERS: Emergency Provider Emergency Medicine; PCP Family Medicine
DX: R00.2 Palpitations (principal); I45.4 Nonspecific intraventricular block
CPT/HCPCS: 71045; 80053; 82550; 83690; 84484; 85025; 93005; 93010; 99283; 99284

== ENCOUNTER → 2023-09-18 08:54 | Outpatient (CLI) | payer OTHER, SELFPAY ==
[2023-09-18 10:51] LABS: TSH w/ Reflex to FT4 2.56 uIU/mL (0.47-4.68)
== END ==
PROVIDERS: PCP Family Medicine; Referring Provider Family Medicine; Visit Provider Family Medicine
DX: R00.2 Palpitations (principal)
CPT/HCPCS: 36415; 84443

== ENCOUNTER → 2024-09-16 14:02 | Outpatient (CLI) | payer OTHER, SELFPAY ==
[2024-09-16 14:40] LABS: Add Manual Diff / Slide Review NO; Basophils Absolute Auto 0 /uL (0-100); Basophils Percent Auto 0.4 % (0-2); Eosinophils Absolute Auto 100 /uL (0-450); Eosinophils Percent Auto 2.3 % (2-4); Hematocrit 44.6 % (41-53); Lymphocytes Absolute Auto 1200 /uL (1100-4500); Lymphocytes Percent Auto 31.4 % (25-40); Mean Corpuscular HGB Conc 33.8 % (30-36); Mean Corpuscular Hemoglobin 30.6 PG (26-34); Mean Corpuscular Volume 90.5 fL (80-100); Monocytes Absolute Auto 400 /uL (0-900); Monocytes Percent Auto 9.4 % (3-14); Neutrophils Absolute Auto 2200 /uL (1500-7000); Neutrophils Percent Auto 56.5 % (50-75); Platelet Count 160 X10^3/uL (150-400); Red Blood Cell Count 4.92 X10^6/uL (4.5-5.9); Red Cell Distribution Width 12.7 % (11.6-14.8); White Blood Cell Count 3.9 X10^3/uL (4.5-11.0)
[2024-09-16 15:12] LABS: Alanine Aminotransferase 24 IU/L (<50); Albumin 4.5 g/dL (3.5-5.0); Alkaline Phosphatase 62 U/L (38-126); Aspartate Aminotransferase 33 IU/L (17-59); BUN Creatinine Ratio 11.9 (6-22); Bilirubin Total 1.4 mg/dL (0.2-1.3); Blood Urea Nitrogen 12 mg/dL (9-20); C-Reactive Protein Quant < 0.5 mg/dL (<1.0); Calcium 9.3 mg/dL (8.4-10.2); Carbon Dioxide 34 mmol/L (22-32); Chloride 101 mmol/L (98-107); Estimated Glomerular Filt Rate > 60 mL/min (>60); Globulin 2.3 g/dL (1.7-4.1); Glucose 85 mg/dL (70-100); HEMOLYSIS < 15 (0-50); Potassium 4.3 mmol/L (3.4-5.1); Sodium 139 mmol/L (137-145); Total Protein 6.8 g/dL (6.3-8.2)
[2024-09-16 15:26] LABS: Vitamin D 25 Hydroxy (D3) 36.5 ng/mL (30.0-100.0)
[2024-09-16 15:41] LABS: TSH w/ Reflex to FT4 3.01 uIU/mL (0.47-4.68)
[2024-09-16 15:45] LABS: Ferritin 123 ng/mL (18-464)
[2024-09-16 16:00] LABS: Vitamin B12 356 pg/mL (239-931)
[2024-09-18 21:36] LABS: Deamidated Gliadin Ab IgA 2 units (0-19); Deamidated Gliadin Ab IgG 1 units (0-19); Immunoglobulin A,Qn 87 mg/dL (90-386); t-Transglutaminase IgA <2 U/mL (0-3)
== END ==
PROVIDERS: PCP Family Medicine; Referring Provider Family Medicine; Visit Provider Family Medicine
DX: K58.2 Mixed irritable bowel syndrome (principal); R10.9 Unspecified abdominal pain; K59.00 Constipation, unspecified
CPT/HCPCS: 80053; 82306; 82607; 82728; 82784; 83516; 84443; 85025; 86140

== ENCOUNTER → 2024-10-02 08:48 | Outpatient (CLI) | payer OTHER, SELFPAY ==
--- NOTE | 2024-10-02 08:49 | DI.RAD.S_ITS ---
PROCEDURE: FL UPPER GI SMALL BOWEL INDICATIONS: Mixed irritable bowel syndrome COMPARISON: None. 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 No suspicious abdominal calcifications. Visualized solid organ contours appear normal in size. No suspicious bony abnormalities. Esophagus: Air-contrast views demonstrate a normal mucosal pattern. On single-contrast views, there is normal peristalsis. No fixed strictures, extrinsic mass effects, or diverticula. No hiatal hernias or elicited gastroesophageal reflux. There is normal transit of a calibrated barium tablet through the esophagus. Stomach: The gastric lumen is normally distensible, and has normal rugal fold thickness. No mucosal masses or ulcers. The pylorus and duodenal bulb have a normal morphology. Small bowel: Duodenal folds appear normal in thickness. There is normal transit time of barium through the small intestine. Small bowel loops appear normal in caliber throughout. Jejunal and ileal folds are smooth and normal in thickness. No strictures, intraluminal masses, or extrinsic mass effects. The terminal ileum is identified and appears normal. IMPRESSION: Complete transit of contrast through the small bowel and 7 hours without obvious morphologic /mucosal abnormality. Dictated by: John Desai M.D. on 10/02/2024 at 17:45 Approved by: John Desai M.D. on 10/02/2024 at 17:47
== END ==
LOC: RAD 08:49
PROVIDERS: PCP Family Medicine; Referring Provider Family Medicine; Visit Provider Family Medicine
DX: K58.2 Mixed irritable bowel syndrome (principal)
CPT/HCPCS: 74240; 74248

== ENCOUNTER 2024-11-29 13:04 | Day surgery (SDC) | payer OTHER, SELFPAY ==
--- NOTE | 2024-11-29 | PATH_ITS ---
[facility] Accession Number: [id number] No. of containers..07 Tissue . 01 Material submitted: . PART A: duodenum - DUODENAL PART B: stomach - ANTRUM PART C: esophagus, E-G Junction - GE JUNCTION PART D: small bowel - TERMINAL ILEUM PART E: colon - RANDOM ASCENDING COLON PART F: colon - RANDOM SIGMOID COLON PART G: rectum - RECTUM . 01 Diagnosis: A. DUODENUM, BIOPSY: Duodenal mucosa with no diagnostic abnormality. Negative for active inflammation, features of sprue, dysplasia, or malignancy. . B. GASTRIC ANTRUM, BIOPSY: Gastric antral mucosa with no diagnostic abnormality. No evidence of Helicobacter organisms on H/E stain. Negative for intestinal metaplasia. Negative for dysplasia or malignancy. . C. GASTROESOPHAGEAL JUNCTION, BIOPSY: Squamocolumnar junctional mucosa with no diagnostic abnormality. Negative for intestinal metaplasia. Negative for dysplasia and malignancy. . D. TERMINAL ILEUM, BIOPSY: Ileal mucosa with no diagnostic abnormality. Negative for active inflammation, granulomas, dysplasia, or malignancy. . E. RANDOM ASCENDING COLON, BIOPSY: Colonic mucosa with no diagnostic abnormality. Negative for active, chronic, and microscopic colitis. Negative for dysplasia and malignancy. . F. RANDOM SIGMOID COLON, BIOPSY: Colonic mucosa with no diagnostic abnormality. Negative for active, chronic, and microscopic colitis. Negative for dysplasia and malignancy. . G. RECTUM, BIOPSY: Colonic mucosa with no diagnostic abnormality. Negative for active, chronic, and microscopic colitis. Negative for dysplasia and malignancy. . [facility] 12/02/2024 [facility]6 Local . 01 Electronically signed: . Francisco Luevano MD, PhD, Pathologist NPI- [id number] . 01 Gross description: . A. Received in formalin, labeled with two patient identifiers and 1. Duodenal biopsy, are two raymond soft tissue fragments, both measuring 0.3 cm in greatest dimension. Submitted in cassette A1. B. Received in formalin, labeled with two patient identifiers and 2. Antrum, are two raymond soft tissue fragments measuring 0.3-0.5 cm in greatest dimension. Submitted in cassette B1. C. Received in formalin, labeled with two patient identifiers and 3. GE junction, are three raymond soft tissue fragments measuring 0.2-0.5 cm in greatest dimension. Submitted in cassette C1. D. Received in formalin, labeled with two patient identifiers and 4. Terminal ileum, are three raymond soft tissue fragments with a single yellow-raymond fragment of possible debris ranging from 0.2-0.3 cm in greatest dimension. Submitted in cassette D1. E. Received in formalin, labeled with two patient identifiers and 5. Random ascending colon, are two raymond soft tissue fragments, both measuring 0.3 cm in greatest dimension. Submitted in cassette E1. F. Received in formalin, labeled with two patient identifiers and 6. Random sigmoid biopsy, are two raymond soft tissue fragments, both measuring 0.4 cm in greatest dimension. Submitted in cassette F1. G. Received in formalin, labeled with two patient identifiers and 7. Rectum, are three raymond soft tissue fragments measuring 0.2-0.7 cm in greatest dimension. Submitted in cassette G1. ([id number]) /[facility] 11/30/2024 1056 Local . 01 Pathologist provided ICD-10: R10.13, K59.00 . 01 CPT . 904189, 102426, 835545, 979990, 642507, 229920, [id number] Specimen Comment: A courtesy copy of this report has been sent to [facility] Pathology Performed at: [address] [id number] MD John Dunham MD Phone: [phone]
--- NOTE | 2024-11-29 13:29 | PM.PREOP ---
Pre-operative Note Interval Note History & Physical reviewed/Exam performed by Physician: Yes Changes to H&P: No
[2024-11-29] MEDS: LACTATED RINGERS 1,000 ML 42 ML IV (13:32)
--- NOTE | 2024-11-29 14:31 | PM.OP.EC ---
Operative Date/Time/Diagnoses Date of procedure: 11/29/24 Time of procedure: 14:31 Pre-op diagnosis: Abdominal pain, changes in bowels Post-op diagnosis: other (Gastritis, ileitis) Procedure & Clinicians Study performed: EGD with biopsy Colonoscopy with biopsies Same procedure as scheduled: Yes Indications: Changes in bowel habits, abdominal pain Surgeon: Rigoberto Barnes Procedure Notes SCOAP/Timeout: Performed Procedure in detail: Time-out was performed. Mac was induced. Patient was placed in left lateral decubitus position. Bite block was placed. Gastroscope was placed through the mouth into the 2nd portion of the duodenal. Random biopsies were taken of the duodenal, antrum and GE junction with cold forceps. There was mild antral gastritis as well as mild distal esophagitis consistent with reflux. The gastroscope was then removed. The perineum was inspected without any gross abnormality. Lubricated pediatric colonoscope was inserted and advanced to the cecum. The terminal ileum was intubated. Random biopsies were taken from the terminal ileum which had the appearance of blunted villi and slight friability. The colonoscope was withdrawn slowly inspecting the circumference of the colon. Random biopsies were taken from the ascending colon and sigmoid colon. The remainder of the colon appeared normal. Very small polyps may have been missed, prep quality was adequate. Retroflexed view of the rectum showed small, non prolapsed nonbleeding internal hemorrhoids. The scope was withdrawn the patient was taken to PACU in good condition. Scope withdrawal time: 10 Findings: gastritis and other findings (ileiitis) Specimen(s): other (1. Duodenal biopsy 2. Antral biopsy 3. GE junction 4. Terminal ileum 5. Random ascending 6. Random sigmoid) Complications: none Impression: gastritis and ileitis Post-procedure Recommendations: Colonscopy in 10 years, EGD in 3 years and Other recommendation (continue dairy-free, gluten-free diet. Await results in your patient portal.) Follow up: as needed Disposition: PACU
[2024-11-29 14:33] VITALS: BP 95/66; PULSE 61; RESP 15; TEMP 36.1; O2SAT 100
[2024-11-29 14:38] VITALS: BP 94/61; PULSE 69; RESP 14; O2SAT 100
[2024-11-29 14:43] VITALS: BP 100/64; PULSE 59; RESP 13; O2SAT 100
[2024-11-29 14:46] VITALS: BP 101/64; PULSE 74; RESP 13; TEMP 36.1; O2SAT 100
[2024-11-29 15:09] VITALS: BP 112/74; PULSE 52; RESP 16; TEMP 36.5; O2SAT 100
[2024-11-29 15:40] VITALS: BP 105/63; PULSE 60; RESP 16; TEMP 36.4; O2SAT 100
== END 2024-11-29 15:51 | disposition home or self-care (01) ==
PROVIDERS: PCP Family Medicine; Referring Provider Surgery; Visit Provider Surgery
PROC: 0DJ08ZZ Inspection of Upper Intestinal Tract, Via Natural or Artificial Opening Endoscopic (ICD-10-PCS; CPT 45380; principal; 2024-11-29 14:00)
PROC: 0DJD8ZZ Inspection of Lower Intestinal Tract, Via Natural or Artificial Opening Endoscopic (ICD-10-PCS; CPT 45378; 2024-11-29 14:00)
DX: K29.70 Gastritis, unspecified, without bleeding (principal); K52.9 Noninfective gastroenteritis and colitis, unspecified
CPT/HCPCS: 45380; 43239; J2250; J2704; J3010

== ENCOUNTER → 2024-12-02 16:34 | Outpatient (CLI) | payer OTHER, SELFPAY ==
--- NOTE | 2024-12-02 16:35 | DI.RAD.S_ITS ---
PROCEDURE: XR SHOULDER RT MIN 2V INDICATIONS: rt shulder pain with impigment TECHNIQUE: 3 views of the right shoulder were acquired. COMPARISON: [facility], CR, XR SHOULDER LT MIN 2V, 11/04/2022, 16:21. FINDINGS: Bones: There are no osseous abnormalities. Acromioclavicular and glenohumeral joints: Normal in width and alignment without arthritic change Soft tissues: No soft tissue swelling, calcification or mass. IMPRESSION: Normal shoulder Dictated by: Efraín Granados M.D. on 12/03/2024 at 7:36 Approved by: Efraín Granados M.D. on 12/03/2024 at 7:37
== END ==
PROVIDERS: PCP Family Medicine; Referring Provider Family Medicine; Visit Provider Family Medicine
DX: M25.511 Pain in right shoulder (principal)
CPT/HCPCS: 73030

== ENCOUNTER → 2024-12-16 16:16 | Outpatient (CLI) | payer OTHER, SELFPAY ==
--- NOTE | 2024-12-16 16:17 | DI.MRI.S_ITS ---
PROCEDURE: MR SHOULDER RT WO CON INDICATIONS: R shoulder pain despite conservative measures TECHNIQUE: Noncontrast oblique coronal T2 fast spin echo with fat saturation, oblique sagittal T1 spin echo and T2 fast spin echo with fat saturation, axial T1 spin echo and T2 fast spin echo with fat saturation through the shoulder. COMPARISON: [facility], CR, XR SHOULDER RT MIN 2V, 12/02/2024, 16:32. FINDINGS: Image quality: Excellent. Rotator cuff: Mild supraspinatus tendinosis. The infraspinatus and teres minor tendons are intact. Mild subscapularis tendinosis. No significant rotator cuff tendon tearing. The rotator cuff musculature is normal in signal intensity and bulk. Bones and bursae: Osseous edema is seen surrounding the acromioclavicular joint. The acromioclavicular joint is normally aligned. Mild subchondral cystic changes and small marginal osteophytes are present. No focal glenohumeral cartilage defect. Small amount of fluid in the subacromial/subdeltoid bursa. No significant glenohumeral effusion. Capsule and soft tissues: No acute displaced labral tear. Proximal biceps long head tendon demonstrates mild tendinosis. There is partial effacement of the fat signal in the rotator interval. The anterior band of the inferior glenohumeral ligament and the middle glenohumeral ligament appears thickened. IMPRESSION: 1. Osseous edema surrounding the acromioclavicular joint may be secondary to moderate to severe osteoarthrosis versus prior acromioclavicular separation injury, osseous contusion, or chronic repetitive stress. 2. Small subacromial/subdeltoid bursal effusion or mild bursitis. 3. Mild supraspinatus and subscapularis tendinosis. No significant rotator cuff tendon tearing. 4. Mild proximal biceps long head tendinosis. 5. Partial effacement of the rotator interval fat and mild thickening of the inferior and middle glenohumeral ligaments are nonspecific, but can be seen in the setting of the clinical syndrome of adhesive capsulitis. Approved by: Henok Nolen M.D. on 12/17/2024 at 9:27
== END ==
PROVIDERS: PCP Family Medicine; Referring Provider Family Medicine; Visit Provider Family Medicine
DX: M25.511 Pain in right shoulder (principal); M25.411 Effusion, right shoulder; M25.819 Other specified joint disorders, unspecified shoulder
CPT/HCPCS: 73221

== ENCOUNTER 2025-01-15 13:04 | Emergency (ER) | payer OTHER, SELFPAY ==
[2025-01-15 13:08] VITALS: BP 130/81; PULSE 75; RESP 14; TEMP 36.2; O2SAT 99; BMI 22.5
--- NOTE | 2025-01-15 13:19 | PC.NURSE ---
Ani Kevin removed the tick from pts leg.
--- NOTE | 2025-01-15 13:24 | ED_ITS ---
HPI - Animal Bite <Ani Kevin PA-C - Last Filed: 01/15/25 13:28> General Chief Complaint: Animal Bite Stated Complaint: Tick in left leg Time Seen by Provider: 01/15/25 13:09 Source: patient Mode of arrival: Ambulatory History of Present Illness HPI narrative: Mr. Sam is a very pleasant 39-year-old male with no reported past medical history who presents to the emergency department for a tick embedded in his left lower leg. Patient states he was on a hike in the area and noticed a tick on his left lower leg about 20 minutes prior to arrival so he came immediately to the emergency department. He denies any rashes, fevers, chills, difficulty breathing or bleeding. He has never been bitten by tick before. Related Data Previous Rx's Medication Instructions Recorded amlodipine 5 mg tablet 5 mg PO DAILY #30 tabs 12/02/24 Allergies Allergy/AdvReac Type Severity Reaction Status Date / Time No Known Drug Allergies Allergy Verified 01/15/25 13:12 Review of Systems <Ani Kevin PA-C - Last Filed: 01/15/25 13:28> Review of Systems ROS Unobtainable: All systems reviewed & are unremarkable except as noted in HPI and below Patient History <Ani Kevin PA-C - Last Filed: 01/15/25 13:28> Medical History Colon cancer screening COVID-19 Asthma (~1989) IBS (irritable bowel syndrome) (2002) History of blood transfusion (01/1983) Surgical History History of repair of anterior cruciate ligament of right knee (09/2001) Anesthesia History of tonsillectomy (~1989) Family History Father Age: 64 High cholesterol Grandfather Age: 86 Diabetes mellitus Heart disease High cholesterol Grandmother Age: 83 High cholesterol Mother Age: 64 High cholesterol Grandfather Age: 87 High cholesterol Grandmother Age: 86 High cholesterol Sister No problems noted. Social History marital status: household members: spouse and children lives independently: Yes occupational status: employed alcohol intake: never substance use type: does not use alcohol intake frequency: other Exam <Ani Kevin PA-C - Last Filed: 01/15/25 13:28> Narrative Exam Narrative: GENERAL: 39 year old patient appears stated age. Well-developed patient, in no acute distress. HEAD: Atraumatic. Normocephalic. RESPIRATORY: ?Nonlabored respirations. ?Speaking in clear, full sentences. EXTREMITIES: On the left lateral calf, there is a small left tick in the patients skin. No surrounding rash or erythema. Tick was easily removed without any remaining pieces or bleeding. NEURO: AOx3. ?Clear speech. ?Moves all 4 extremities appropriately. Initial Vital Signs Initial Vital Signs: Vital Signs Temperature 97.1 F L 01/15/25 13:08 Pulse Rate 75 01/15/25 13:08 Respiratory Rate 14 01/15/25 13:08 Blood Pressure 130/81 01/15/25 13:08 Pulse Oximetry 99 01/15/25 13:08 Oxygen Delivery Method Room Air 01/15/25 13:08 <Rachael Rader DO - Last Filed: 01/16/25 07:36> Initial Vital Signs Initial Vital Signs: Vital Signs Temperature 97.1 F L 01/15/25 13:08 Pulse Rate 75 01/15/25 13:08 Respiratory Rate 14 01/15/25 13:08 Blood Pressure 130/81 01/15/25 13:08 Pulse Oximetry 99 01/15/25 13:08 Oxygen Delivery Method Room Air 01/15/25 13:08 Course <Ani Kevin PA-C - Last Filed: 01/15/25 13:28> Vital Signs Vital signs: Vital Signs - 8 hr 01/15/25 13:08 Temperature 97.1 F L Pulse Rate 75 Respiratory Rate 14 Blood Pressure 130/81 Pulse Oximetry 99 Oxygen Delivery Method Room Air <DO Nicholas Marino Last Filed: 01/16/25 07:36> Vital Signs Vital signs: Vital Signs - 8 hr 01/15/25 13:08 Temperature 97.1 F L Pulse Rate 75 Respiratory Rate 14 Blood Pressure 130/81 Pulse Oximetry 99 Oxygen Delivery Method Room Air MDM - Animal Bite <Ani Kevin PA-C - Last Filed: 01/15/25 13:28> Medical Records Attestation: I reviewed the patient's medical records. [facility] Narrative Medical decision making narrative: 39-year-old male with no reported past medical history who presents to the emergency department for a tick embedded in his left lower leg. Differential diagnosis includes but is not limited to embedded tick, tick bite, allergic reaction, Lyme disease, etc. On exam patient is in no acute distress, nontoxic appearing, vital signs appropriate. Physical exam reveals a small black tick on the left lateral calf. Using forceps, the tick was grasped at the head and pulled directly backwards, allowing for easy removal. There was no remaining pieces of tick embedded in the skin. There was no bleeding. Area was cleansed with alcohol prior to removal and with Betadine after removal. Tick has been attached for about 20 minutes. All 3 IDSA inclusion criteria are not met -the tick may be Ixodes s pecies however it was not attached for greater than 36 hours to the body, and we are not in a highly endemic area for Lyme disease therefore Lyme disease prophylaxis was not initiated. Recommended local wound care, allergy pill/hydrocortisone if needed for local allergic reaction, signs and symptoms to look out for to return to ED for. Patient verbalized understanding of all information is agreeable to the plan. He is stable for discharge home. Discharge Plan Departure Patient Disposition: Home Clinical Impression: Embedded tick of left lower leg Qualifiers: Encounter type: initial encounter Qualified Code(s): S80.852A - Superficial foreign body, left lower leg, initial encounter Instructions: DI for Insect Bites and Stings Activity Restrictions/Additional Instructions: Thank you for coming to the emergency department. Today you were evaluated for a tick on your left lower leg. The tick was removed and the area was cleansed. No remaining pieces of the tick are embedded in your skin. You may have a local allergic reaction to the tick bite such as redness and itching which you can take a daily allergy pill for or apply topical itch cream or hydrocortisone cream. Please if you develop flu-like symptoms, a red bulls eye type rash, or any other concerns return to the emergency department. Please follow up with your primary care doctor within the next 2-3 days for ER follow-up. (If you do not have a PCP you can call [phone]. ?to schedule an appointment with an [facility] Primary Care Provider) IF YOU DEVELOP ANY NEW OR WORSENING SYMPTOMS, RETURN TO THE ER! Please read the attached instructions, they highlight more specific treatments and interventions for you at home. Thank you for letting me participate in your care, Ani Kevin PA-C Prescriptions: No Action amlodipine 5 mg tablet 5 mg PO DAILY Qty: 30 1RF Referrals: Joseluis Jansen MD [Primary Care Provider] - Stand Alone Forms: Patient Portal/API/Survey ED Sign-out <Rachael Rader DO - Last Filed: 01/16/25 07:36> Cosign ED Attending Yeimi Attestation: I was available for consultation.
== END 2025-01-15 13:35 | disposition home or self-care (01) ==
PROVIDERS: Emergency Provider Physician Assistant; Family Provider Family Medicine; PCP Family Medicine
DX: S80.852A Superficial foreign body, left lower leg, initial encounter (principal); W45.8XXA Other foreign body or object entering through skin, initial encounter
CPT/HCPCS: 99281

== ENCOUNTER 2025-04-14 16:15 | Outpatient (RCR) | payer OTHER, SELFPAY ==
--- NOTE | 2025-02-10 17:00 | PT.OIE ---
Current Diagnoses Pain in right shoulder (02/10/25) Other enthesopathies, not elsewhere classified (02/10/25) Past Medical History (Last Reviewed 01/15/25 @ 13:24 by Ani Kevin PA-C) Asthma (~1989) Colon cancer screening COVID-19 History of blood transfusion (01/1983) IBS (irritable bowel syndrome) (2002) Past Surgical History (Last Reviewed 01/15/25 @ 13:24 by Ani Kevin PA-C) Anesthesia History of repair of anterior cruciate ligament of right knee (09/2001) History of tonsillectomy (~1989) Visit Care Team Role Provider Type Joseluis Jansen MD Attending Provider Physician Family Provider Primary Care Provider Referring Provider Specialty: [facility] Address: [address] [place] [address], [facility] [address], [place], [facility] Email: [email or web address] Physical Therapy Initial Evaluation PT-OP-A Visit Information Start: 02/10/25 17:53 Freq: Status: Active Protocol: Document 02/10/25 16:15 DCW (Rec: 02/10/25 17:59 DCW [id number]) Out-Patient Physical Therapy Visit Information Visit Information Visit Type Initial Evaluation Visit Start Time 16:15 Visit Stop Time 17:00 Visit Number 1 Number of [employer] Visits 0 Evaluation Information Evaluation Date 02/10/25 PT-OP-B Current Condition Start: 02/10/25 17:53 Freq: Status: Active Protocol: Document 02/10/25 16:15 DCW (Rec: 02/10/25 18:12 DCW [id number]) Current Condition History of Current Condition Onset Date 1-2 year history Current Complaints Right>left shoulder pain History of Current Condition Pt is a 40 year old male presenting with a 1-2 year history of right>left shoulder pain. Pt reports there was no initial injury, it just exacerbate over time. Feels it was some combination of weights, pushups, and throwing the ball with his son. Reports pain is largely along his anterior and lateral shoulder, mainly pointing to his subacromial space. 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 Prior Treatments and Tests Shoulder MRI: IMPRESSION: 1. Osseous edema surrounding the acromioclavicular joint may be secondary to moderate to severe osteoarthrosis versus prior acromioclavicular separation injury, osseous contusion, or chronic repetitive stress. 2. Small subacromial/subdeltoid bursal effusion or mild bursitis. 3. Mild supraspinatus and subscapularis tendinosis. No significant rotator cuff tendon tearing. 4. Mild proximal biceps long head tendinosis. 5. Partial effacement of the rotator interval fat and mild thickening of the inferior and middle glenohumeral ligaments are nonspecific, but can be seen in the setting of the clinical syndrome of adhesive capsulitis. per Henok Nolen M.D. on 12/17/2024 PT-OP-C Subjective Start: 02/10/25 17:53 Freq: Status: Active Protocol: Document 02/10/25 16:15 DCW (Rec: 02/10/25 17:59 DCW [id number]) OP-PT Subjective Patient Comments Patient Comments Pt notes he has full range of motion, it's just uncomfortable. Patient Reported Progress Improving Patient Questionnaires Quick Dash- Upper Extremity Quick Dash UE Score 45.45% PT-OP-F Manual Assessment Start: 02/10/25 17:53 Freq: Status: Active Protocol: Document 02/10/25 16:15 DCW (Rec: 02/10/25 18:12 DCW [id number]) Manual Assessments Joint Mobility Assessment Joint Mobility Assessment Mild step deformity at right a /c joint. PT-OP-J Posture/Palpation/Skin Start: 02/10/25 17:53 Freq: Status: Active Protocol: Document 02/10/25 16:15 DCW (Rec: 02/10/25 18:12 DCW [id number]) Posture Evaluation Comments Posture Comments At rest distance from spine to left inferior angle 14 cm, right inferior angle 12 cm. Distance from spine to left medial border at the scapular spine 9 cm, right medial border 10 cm. Right scapula appears to be slightly rotated clockwise. PT-OP-K Range of Motion Start: 02/10/25 17:53 Freq: Status: Active Protocol: Document 02/10/25 16:15 DCW (Rec: 02/10/25 18:12 DCW [id number]) Shoulder Goniometric Range of Motion Shoulder Right Active Shoulder ROM WFL Yes Testing Position Sitting Flexion 180 Abduction 180 Left Active Shoulder ROM WFL Yes Testing Position Sitting Flexion 180 Abduction 180 PT-OP-L Special Tests Start: 02/10/25 17:53 Freq: Status: Active Protocol: Document 02/10/25 16:15 DCW (Rec: 02/10/25 18:12 DCW [id number]) Special Tests Shoulder Special Tests Yergason's Biceps Test Results Negative Speed's Biceps Test Results Negative Passive ER Rotator Cuff Test Results Negative Lift-Off Rotator Cuff Test Results Negative Pearl Donavan Impingement Test Results Negative Grind Labrum Test Results Negative Empty Can Test Results Positive Right Drop Arm Rotator Cuff Test Results Negative Belly Press Test Results Negative Apprehension Test Test Results Negative AC Joint Compression Test Results Mild right pain PT-OP-M Strength Start: 02/10/25 17:53 Freq: Status: Active Protocol: Document 02/10/25 16:15 DCW (Rec: 02/10/25 18:12 DCW [id number]) Shoulder Strength Shoulder Manual Muscle Testing Right Flexion 5 Normal Abduction (C5) 5 Normal External Rotation 5 Normal Internal Rotation 5 Normal Left Flexion 5 Normal Abduction (C5) 5 Normal External Rotation 5 Normal Internal Rotation 5 Normal PT-OP-Q Treatments Start: 02/10/25 17:53 Freq: Status: Active Protocol: Document 02/10/25 16:15 DCW (Rec: 02/10/25 17:59 DCW [id number]) Therapeutic Exercises Supine Exercises Serratus Punch Supine Exercise Name Serratus Punch Side bilateral Standing Exercises Rows Standing Exercise Name Rows Side bilateral Resistance Lv 3 Pec Stretch Standing Exercise Name Pec Stretch - Corner stretch Side bilateral PT-OP-T Assessment and Plan Start: 02/10/25 17:53 Freq: Status: Active Protocol: Document 02/10/25 16:15 DCW (Rec: 02/11/25 10:40 DCW [id number]) Physical Therapy Assessment Rehab Potential Rehabilitation Potential Good Evaluation Complexity Number of Personal Factors/Comorbidities 0 Number of Body Systems Impaired 4 or More Clinical Presentation at Evaluation Stable Impairments Impairments Pain,Posture,ROM,Soft Tissue Mobility,Strength Goals Two Impairment Pt experiences increased shoulder pain with overhead activities/mowing lawn Mcfp Goal (LTG) Pt to demonstrate pain-free overhead movement with bilateral shoulders in order to 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 Pt presents with mild clockwise rotation of right scapula, which appears to result in subacromial impingement. Pt testing today largely unremarkable, Empty Can test the only real positive special test. Additionally does appear to have a small step deformity in his right A/C joint. Pt will likely benefit from skilled therapeutic intervention focusing on posture, improving scapulothoracic rhythm, strengthening of the shoulder complex, and improving pain- free ROM. Physical Therapy Plan Frequency and Duration Frequency of Treatment 2x/Week Plan of Care Start Date 02/10/25 Plan of Care End Date 04/12/25 Therapeutic Interventions Therapeutic Interventions Home Exercise Program,Joint Mobilizations,Manual Therapy, Patient/Caregiver Education, Self-Care/Home Management,Soft Tissue Mobilization,Taping, Therapeutic Activities, Therapeutic Exercises Next Visit Focus/Plan Next Note Type Treatment Note Next Visit Plan Joint mobs, STM, posture training, shoulder strengthening
--- NOTE | 2025-02-10 17:00 | PT.OPPOC ---
Physical, Occupational & Speech Therapy At [facility] Current Diagnoses Pain in right shoulder (02/10/25) Other enthesopathies, not elsewhere classified (02/10/25) Visit Care Team Role Provider Type Joseluis Jansen MD Attending Provider Physician Family Provider Primary Care Provider Referring Provider Specialty: Family Practice Address: [address] [place] [address], [address], [facility] Email: [email or web address] Plan Of Care PT-OP-B Current Condition Start: 02/10/25 17:53 Freq: Status: Active Protocol: Document 02/10/25 16:15 DCW (Rec: 02/10/25 18:12 DCW [id number]) Current Condition History of Current Condition Onset Date 1-2 year history Current Complaints Right>left shoulder pain History of Current Condition Pt is a 40 year old male presenting with a 1-2 year history of right>left shoulder pain. Pt reports there was no initial injury, it just exacerbate over time. Feels it was some combination of weights, pushups, and throwing the ball with his son. Reports pain is largely along his anterior and lateral shoulder, mainly pointing to his subacromial space. 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 Prior Treatments and Tests Shoulder MRI: IMPRESSION: 1. Osseous edema surrounding the acromioclavicular joint may be secondary to moderate to severe osteoarthrosis versus prior acromioclavicular separation injury, osseous contusion, or chronic repetitive stress. 2. Small subacromial/subdeltoid bursal effusion or mild bursitis. 3. Mild supraspinatus and subscapularis tendinosis. No significant rotator cuff tendon tearing. 4. Mild proximal biceps long head tendinosis. 5. Partial effacement of the rotator interval fat and mild thickening of the inferior and middle glenohumeral ligaments are nonspecific, but can be seen in the setting of the clinical syndrome of adhesive capsulitis. per Henok Nolen M.D. 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 Pt presents with mild clockwise rotation of right scapula, which appears to result in subacromial impingement. Pt testing today largely unremarkable, Empty Can test the only real positive special test. Additionally does appear to have a small step deformity in his right A/C joint. Pt will likely benefit from skilled therapeutic intervention focusing on posture, improving scapulothoracic rhythm, strengthening of the shoulder complex, and improving pain- free ROM. Physical Therapy Plan Frequency and Duration Frequency of Treatment 2x/Week Plan of Care Start Date 02/10/25 Plan of Care End Date 04/12/25 Therapeutic Interventions Therapeutic Interventions Home Exercise Program,Joint Mobilizations,Manual Therapy, Patient/Caregiver Education, Self-Care/Home Management,Soft Tissue Mobilization,Taping, Therapeutic Activities, Therapeutic Exercises Next Visit Focus/Plan Next Note Type Treatment Note Next Visit Plan Joint mobs, STM, posture training, shoulder strengthening Plan of Care Dates Plan of Care Start Date 02/10/25 Plan of Care End Date 04/12/25 Electronically Signed by: Satish Arredondo, PT 02/11/25 [id number] If you are in agreement with this Plan of Care, please return a signed and dated copy. I have reviewed this Plan of Care and certify that the skilled therapy services above are required to meet the patient?s needs. Physician Signature Date Printed Name and Credentials Clinical Instructor Signature Printed Name and Credentials
--- NOTE | 2025-02-14 16:01 | PT.OTN ---
Current Diagnoses Pain in right shoulder (02/14/25) Other enthesopathies, not elsewhere classified (02/14/25) Physical Therapy Treatment Note PT-OP-A Visit Information Start: 02/10/25 17:53 Freq: Status: Active Protocol: Document 02/14/25 15:15 DCW (Rec: 02/14/25 16:01 DCW [id number]) Out-Patient Physical Therapy Visit Information Visit Information Visit Type Treatment Note Visit Start Time 15:15 Visit Stop Time 16:00 Visit Number 2 Number of LEAD REFINERY SUPERVISOR Visits 0 Evaluation Information Evaluation Date 02/10/25 PT-OP-B Current Condition Start: 02/10/25 17:53 Freq: Status: Active Protocol: Document 02/10/25 16:15 DCW (Rec: 02/10/25 18:12 DCW [id number]) Current Condition History of Current Condition Onset Date 1-2 year history Current Complaints Right>left shoulder pain History of Current Condition Pt is a 40 year old male presenting with a 1-2 year history of right>left shoulder pain. Pt reports there was no initial injury, it just exacerbate over time. Feels it was some combination of weights, pushups, and throwing the ball with his son. Reports pain is largely along his anterior and lateral shoulder, mainly pointing to his subacromial space. 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 Prior Treatments and Tests Shoulder MRI: IMPRESSION: 1. Osseous edema surrounding the acromioclavicular joint may be secondary to moderate to severe osteoarthrosis versus prior acromioclavicular separation injury, osseous contusion, or chronic repetitive stress. 2. Small subacromial/subdeltoid bursal effusion or mild bursitis. 3. Mild supraspinatus and subscapularis tendinosis. No significant rotator cuff tendon tearing. 4. Mild proximal biceps long head tendinosis. 5. Partial effacement of the rotator interval fat and mild thickening of the inferior and middle glenohumeral ligaments are nonspecific, but can be seen in the setting of the clinical syndrome of adhesive capsulitis. per Henok Nolen M.D. on 12/17/2024 PT-OP-C Subjective Start: 02/10/25 17:53 Freq: Status: Active Protocol: Document 02/14/25 15:15 DCW (Rec: 02/14/25 16:01 DCW [id number]) OP-PT Subjective Patient Comments Patient Comments It hasn't been any worse or anything. It's been a little stiff doing some of the exercises. PT-OP-F Manual Assessment Start: 02/10/25 17:53 Freq: Status: Active Protocol: Document 02/10/25 16:15 DCW (Rec: 02/10/25 18:12 DCW [id number]) Manual Assessments Joint Mobility Assessment Joint Mobility Assessment Mild step deformity at right a /c joint. PT-OP-J Posture/Palpation/Skin Start: 02/10/25 17:53 Freq: Status: Active Protocol: Document 02/10/25 16:15 DCW (Rec: 02/10/25 18:12 DCW [id number]) Posture Evaluation Comments Posture Comments At rest distance from spine to left inferior angle 14 cm, right inferior angle 12 cm. Distance from spine to left medial border at the scapular spine 9 cm, right medial border 10 cm. Right scapula appears to be slightly rotated clockwise. PT-OP-K Range of Motion Start: 02/10/25 17:53 Freq: Status: Active Protocol: Document 02/10/25 16:15 DCW (Rec: 02/10/25 18:12 DCW [id number]) Shoulder Goniometric Range of Motion Shoulder Right Active Shoulder ROM WFL Yes Testing Position Sitting Flexion 180 Abduction 180 Left Active Shoulder ROM WFL Yes Testing Position Sitting Flexion 180 Abduction 180 PT-OP-L Special Tests Start: 02/10/25 17:53 Freq: Status: Active Protocol: Document 02/10/25 16:15 DCW (Rec: 02/10/25 18:12 DCW [id number]) Special Tests Shoulder Special Tests Yergason's Biceps Test Results Negative Speed's Biceps Test Results Negative Passive ER Rotator Cuff Test Results Negative Lift-Off Rotator Cuff Test Results Negative Pearl Donavan Impingement Test Results Negative Grind Labrum Test Results Negative Empty Can Test Results Positive Right Drop Arm Rotator Cuff Test Results Negative Belly Press Test Results Negative Apprehension Test Test Results Negative AC Joint Compression Test Results Mild right pain PT-OP-M Strength Start: 02/10/25 17:53 Freq: Status: Active Protocol: Document 02/10/25 16:15 DCW (Rec: 02/10/25 18:12 DCW [id number]) Shoulder Strength Shoulder Manual Muscle Testing Right Flexion 5 Normal Abduction (C5) 5 Normal External Rotation 5 Normal Internal Rotation 5 Normal Left Flexion 5 Normal Abduction (C5) 5 Normal External Rotation 5 Normal Internal Rotation 5 Normal PT-OP-Q Treatments Start: 02/10/25 17:53 Freq: Status: Active Protocol: Document 02/14/25 15:15 DCW (Rec: 02/14/25 16:01 [facility] [id number]) Gym Equipment Shuttle Rebound Ball Toss Exercise Details Ball toss at 90/90 Comments Green 500g ball Therapeutic Exercises Prone Exercises I's, Y's, T's Prone Exercise Name Prone flexion, horizontal abduction, extension Side bilateral Resistance 4# Sitting Exercises 90/90 ER Sitting Exercise Name ER with UE at 90/90 Side bilateral Resistance Blue 5.5# ball Standing Exercises Overhead press Standing Exercise Name Overhead press Side bilateral Resistance 7# DB each IR Standing Exercise Name IR at 90/90 Side bilateral Resistance Blue Resisted UE Side-stepping Standing Exercise Name Resisted UE side-stepping Resistance Blue loop Manual Therapy Treatment Joint Mobilizations Scapulothoracic Joint R S/T Direction Lateral Grade III GH Joint R GH mods Direction Inf/Post Grade III PT-OP-T Assessment and Plan Start: 02/10/25 17:53 Freq: Status: Active Protocol: Document 02/14/25 15:15 DCW (Rec: 02/14/25 16:01 [facility] [id number]) Physical Therapy Assessment Impairments Impairments Pain,Posture,ROM,Soft Tissue Mobility,Strength Goals Two Impairment Pt experiences increased shoulder pain with overhead activities/mowing lawn Detention Goal (LTG) Pt to demonstrate pain-free overhead movement with bilateral shoulders in 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 Added prone I 's, Y's, T's to HEP, pt agreeable. Demonstrated improved R scapular mobs. Physical Therapy Plan Frequency and Duration Frequency of Treatment 2x/Week Plan of Care Start Date 02/10/25 Plan of Care End Date 04/12/25 Therapeutic Interventions Therapeutic Interventions Home Exercise Program,Joint Mobilizations,Manual Therapy, Patient/Caregiver Education, Self-Care/Home Management,Soft Tissue Mobilization,Taping, Therapeutic Activities, Therapeutic Exercises Next Visit Focus/Plan Next Note Type Treatment Note Next Visit Plan Joint mobs, STM, posture training, shoulder strengthening
--- NOTE | 2025-03-03 17:02 | PT.OTN ---
Current Diagnoses Pain in right shoulder (03/03/25) Other enthesopathies, not elsewhere classified (03/03/25) Physical Therapy Treatment Note PT-OP-A Visit Information Start: 02/10/25 17:53 Freq: Status: Active Protocol: Document 03/03/25 16:15 DCW (Rec: 03/03/25 17:02 DCW [id number]) Out-Patient Physical Therapy Visit Information Visit Information Visit Type Treatment Note Visit Start Time 16:15 Visit Stop Time 17:00 Visit Number 3 Number of CAMPAIGN ASSISTANT Visits 0 Evaluation Information Evaluation Date 02/10/25 PT-OP-B Current Condition Start: 02/10/25 17:53 Freq: Status: Active Protocol: Document 02/10/25 16:15 DCW (Rec: 02/10/25 18:12 DCW [id number]) Current Condition History of Current Condition Onset Date 1-2 year history Current Complaints Right>left shoulder pain History of Current Condition Pt is a 40 year old male presenting with a 1-2 year history of right>left shoulder pain. Pt reports there was no initial injury, it just exacerbate over time. Feels it was some combination of weights, pushups, and throwing the ball with his son. Reports pain is largely along his anterior and lateral shoulder, mainly pointing to his subacromial space. 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 Prior Treatments and Tests Shoulder MRI: IMPRESSION: 1. Osseous edema surrounding the acromioclavicular joint may be secondary to moderate to severe osteoarthrosis versus prior acromioclavicular separation injury, osseous contusion, or chronic repetitive stress. 2. Small subacromial/subdeltoid bursal effusion or mild bursitis. 3. Mild supraspinatus and subscapularis tendinosis. No significant rotator cuff tendon tearing. 4. Mild proximal biceps long head tendinosis. 5. Partial effacement of the rotator interval fat and mild thickening of the inferior and middle glenohumeral ligaments are nonspecific, but can be seen in the setting of the clinical syndrome of adhesive capsulitis. per Henok Nolen M.D. on 12/17/2024 PT-OP-C Subjective Start: 02/10/25 17:53 Freq: Status: Active Protocol: Document 03/03/25 16:15 DCW (Rec: 03/03/25 17:02 DCW [id number]) OP-PT Subjective Patient Comments Patient Comments Pt reports his shoulders are doing well overall, but overdid his prone exercises, and was sore afterward, but if feeling better. PT-OP-F Manual Assessment Start: 02/10/25 17:53 Freq: Status: Active Protocol: Document 02/10/25 16:15 DCW (Rec: 02/10/25 18:12 DCW [id number]) Manual Assessments Joint Mobility Assessment Joint Mobility Assessment Mild step deformity at right a /c joint. PT-OP-J Posture/Palpation/Skin Start: 02/10/25 17:53 Freq: Status: Active Protocol: Document 02/10/25 16:15 DCW (Rec: 02/10/25 18:12 DCW [id number]) Posture Evaluation Comments Posture Comments At rest distance from spine to left inferior angle 14 cm, right inferior angle 12 cm. Distance from spine to left medial border at the scapular spine 9 cm, right medial border 10 cm. Right scapula appears to be slightly rotated clockwise. PT-OP-K Range of Motion Start: 02/10/25 17:53 Freq: Status: Active Protocol: Document 02/10/25 16:15 DCW (Rec: 02/10/25 18:12 DCW [id number]) Shoulder Goniometric Range of Motion Shoulder Right Active Shoulder ROM WFL Yes Testing Position Sitting Flexion 180 Abduction 180 Left Active Shoulder ROM WFL Yes Testing Position Sitting Flexion 180 Abduction 180 PT-OP-L Special Tests Start: 02/10/25 17:53 Freq: Status: Active Protocol: Document 02/10/25 16:15 DCW (Rec: 02/10/25 18:12 DCW [id number]) Special Tests Shoulder Special Tests Yergason's Biceps Test Results Negative Speed's Biceps Test Results Negative Passive ER Rotator Cuff Test Results Negative Lift-Off Rotator Cuff Test Results Negative Pearl Donavan Impingement Test Results Negative Grind Labrum Test Results Negative Empty Can Test Results Positive Right Drop Arm Rotator Cuff Test Results Negative Belly Press Test Results Negative Apprehension Test Test Results Negative AC Joint Compression Test Results Mild right pain PT-OP-M Strength Start: 02/10/25 17:53 Freq: Status: Active Protocol: Document 02/10/25 16:15 DCW (Rec: 02/10/25 18:12 DCW [id number]) Shoulder Strength Shoulder Manual Muscle Testing Right Flexion 5 Normal Abduction (C5) 5 Normal External Rotation 5 Normal Internal Rotation 5 Normal Left Flexion 5 Normal Abduction (C5) 5 Normal External Rotation 5 Normal Internal Rotation 5 Normal PT-OP-Q Treatments Start: 02/10/25 17:53 Freq: Status: Active Protocol: Document 03/03/25 16:15 DCW (Rec: 03/03/25 17:02 [facility] [id number]) Gym Equipment Cable Column (Body Solid) Lat Pull Down Resistance 50# Shuttle Rebound Ball Toss Exercise Details Ball toss at 90/90 Comments Green 500g ball Therapeutic Ball Prone Walk-out Exercise Details Walk-out /c push-up Ball Size/Color Green - 65 cm Body Position Prone Therapeutic Exercises Supine Exercises Horizontal Abduction Supine Exercise Name Shoulder Horizontal Abduction Side bilateral Resistance Lv 3 Flex/Ext Supine Exercise Name Shoulder Flexion/Extension Side bilateral Resistance Lv 3 Comments alternating opposite side UEs Serratus Punch Supine Exercise Name Serratus Punch Side bilateral Resistance 4# Prone Exercises I's, Y's, T's Prone Exercise Name Prone flexion, horizontal abduction, extension Side bilateral Resistance 3# Standing Exercises ER/IR Standing Exercise Name ER/IR Side bilateral Resistance Blue Comments At 0 deg Overhead press Standing Exercise Name Overhead press Side bilateral Resistance 7# DB each IR Standing Exercise Name ER/IR at 90/90 Side bilateral Resistance Green PT-OP-T Assessment and Plan Start: 02/10/25 17:53 Freq: Status: Active Protocol: Document 03/03/25 16:15 DCW (Rec: 03/03/25 17:02 [facility] [id number]) Physical Therapy Assessment Impairments Impairments Pain,Posture,ROM,Soft Tissue Mobility,Strength Goals Two Impairment Pt experiences increased shoulder pain with overhead activities/mowing lawn [employer] Goal (LTG) Pt to demonstrate pain-free overhead movement with bilateral shoulders in 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 Pt responding well to strengthening. Physical Therapy Plan Frequency and Duration Frequency of Treatment 2x/Week Plan of Care Start Date 02/10/25 Plan of Care End Date 04/12/25 Therapeutic Interventions Therapeutic Interventions Home Exercise Program,Joint Mobilizations,Manual Therapy, Patient/Caregiver Education, Self-Care/Home Management,Soft Tissue Mobilization,Taping, Therapeutic Activities, Therapeutic Exercises Next Visit Focus/Plan Next Note Type Treatment Note Next Visit Plan Joint mobs, STM, posture training, shoulder strengthening
--- NOTE | 2025-03-31 17:57 | PT.OTN ---
Addendum entered and electronically signed by Satish Arredondo, PT 03/31/25 17:59: PT direct supervision and direction to student PT Nikolas Costello throughout session Original Note: Current Diagnoses Pain in right shoulder (03/31/25) Other enthesopathies, not elsewhere classified (03/31/25) Physical Therapy Treatment Note PT-OP-A Visit Information Start: 02/10/25 17:53 Freq: Status: Active Protocol: Document 03/31/25 16:17 LFG (Rec: 03/31/25 17:08 LFG Laptop) Out-Patient Physical Therapy Visit Information Visit Information Visit Start Time 16:17 Visit Stop Time 16:59 Visit Number 4 Number of HOT KETTLE TENDER Visits 0 Evaluation Information Evaluation Date 02/10/25 PT-OP-B Current Condition Start: 02/10/25 17:53 Freq: Status: Active Protocol: Document 02/10/25 16:15 DCW (Rec: 02/10/25 18:12 DCW [id number]) Current Condition History of Current Condition Onset Date 1-2 year history Current Complaints Right>left shoulder pain History of Current Pt is a 40 year old male presenting with a 1-2 year Condition history of right>left shoulder pain. Pt reports there was no initial injury, it just exacerbate over time. Feels it was some combination of weights, pushups, and throwing the ball with his son. Reports pain is largely along his anterior and lateral shoulder, mainly pointing to his subacromial space. 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 Prior Treatments and Shoulder MRI: IMPRESSION: 1. Osseous edema surrounding Tests the acromioclavicular joint may be secondary to moderate to severe osteoarthrosis versus prior acromioclavicular separation injury, osseous contusion, or chronic repetitive stress. 2. Small subacromial/ subdeltoid bursal effusion or mild bursitis. 3. Mild supraspinatus and subscapularis tendinosis. No significant rotator cuff tendon tearing. 4. Mild proximal biceps long head tendinosis. 5. Partial effacement of the rotator interval fat and mild thickening of the inferior and middle glenohumeral ligaments are nonspecific, but can be seen in the setting of the clinical syndrome of adhesive capsulitis . per Henok Nolen M.D. on 12/17/2024 PT-OP-C Subjective Start: 02/10/25 17:53 Freq: Status: Active Protocol: Document 03/31/25 16:17 LFG (Rec: 03/31/25 17:08 LFG Laptop) OP-PT Subjective Patient Comments Patient Comments Pt reports is doing good, did have a little bit of flares from lobbing the football around with his son about 7-8 yds but had to stop about 4 minutes in. Reports similar sxs from having to wipe overhead to clean whiteboard. PT-OP-F Manual Assessment Start: 02/10/25 17:53 Freq: Status: Active Protocol: Document 02/10/25 16:15 DCW (Rec: 02/10/25 18:12 DCW [id number]) Manual Assessments Joint Mobility Assessment Joint Mobility Mild step deformity at right a/c joint. Assessment PT-OP-J Posture/Palpation/Skin Start: 02/10/25 17:53 Freq: Status: Active Protocol: Document 02/10/25 16:15 DCW (Rec: 02/10/25 18:12 DCW [id number]) Posture Evaluation Comments Posture Comments At rest distance from spine to left inferior angle 14 cm, right inferior angle 12 cm. Distance from spine to left medial border at the scapular spine 9 cm, right medial border 10 cm. Right scapula appears to be slightly rotated clockwise. PT-OP-K Range of Motion Start: 02/10/25 17:53 Freq: Status: Active Protocol: Document 02/10/25 16:15 DCW (Rec: 02/10/25 18:12 DCW [id number]) Shoulder Goniometric Range of Motion Shoulder Right Active Shoulder ROM WFL Yes Testing Position Sitting Flexion 180 Abduction 180 Left Active Shoulder ROM WFL Yes Testing Position Sitting Flexion 180 Abduction 180 PT-OP-L Special Tests Start: 02/10/25 17:53 Freq: Status: Active Protocol: Document 02/10/25 16:15 DCW (Rec: 02/10/25 18:12 DCW [id number]) Special Tests Shoulder Special Tests Yergason's Biceps Test Results Negative Speed's Biceps Test Results Negative Passive ER Rotator Cuff Test Results Negative Lift-Off Rotator Cuff Test Results Negative Pearl Donavan Impingement Test Results Negative Grind Labrum Test Results Negative Empty Can Test Results Positive Right Drop Arm Rotator Cuff Test Results Negative Belly Press Test Results Negative Apprehension Test Test Results Negative AC Joint Compression Test Results Mild right pain PT-OP-M Strength Start: 02/10/25 17:53 Freq: Status: Active Protocol: Document 02/10/25 16:15 DCW (Rec: 02/10/25 18:12 DCW [id number]) Shoulder Strength Shoulder Manual Muscle Testing Right Flexion 5 Normal Abduction (C5) 5 Normal External Rotation 5 Normal Internal Rotation 5 Normal Left Flexion 5 Normal Abduction (C5) 5 Normal External Rotation 5 Normal Internal Rotation 5 Normal PT-OP-Q Treatments Start: 02/10/25 17:53 Freq: Status: Active Protocol: Document 03/31/25 16:17 LFG (Rec: 03/31/25 17:08 LFG Laptop) Therapeutic Exercises Supine Exercises Horizontal Abduction Supine Exercise Name Shoulder Horizontal Abduction Side bilateral Resistance Lv 3 Reps/Minutes 2x15 Comments cues to turn palms facing eachother, limit UT activiation Flex/Ext Supine Exercise Name Shoulder Flexion/Extension Side bilateral Resistance Lv 3 Reps/Minutes 2x15 Comments cues for limiting UT, target delts Serratus Punch Supine Exercise Name Serratus Punch Side bilateral Resistance 4# Reps/Minutes 2x15 Comments cues to slow descent Sidelying Exercises ER Sidelying Exercise Shoulder ER Name Side bilateral Resistance 3# Reps/Minutes 2x12 Comments cues to limit torso/arm from rotating Standing Exercises Shoulder extension Standing Exercise Shoulder extensions Name Side bilateral Resistance blue Reps/Minutes 2x12 Overhead press Standing Exercise Overhead press Name Side bilateral Resistance 7# DB each Equipment Used 1 set attempted w/ L1 band Reps/Minutes 2x12 Comments major UT activation, reports of soreness in shoulder in descent Rows Standing Exercise Rows Name Side bilateral Resistance Raymer Reps/Minutes 2x12 Comments cues for elbows at 90, 2-3 sec pause/hold at end ROM, slow ecc Pec Stretch Standing Exercise Pec Stretch - Corner stretch Name Side bilateral Reps/Minutes 2x30 sec hold PT-OP-T Assessment and Plan Start: 02/10/25 17:53 Freq: Status: Active Protocol: Document 03/31/25 16:17 LFG (Rec: 03/31/25 17:08 LFG Laptop) Physical Therapy Assessment Impairments Impairments Pain,Posture,ROM,Soft Tissue Mobility,Strength Goals Two Impairment Pt experiences increased shoulder pain with overhead activities/mowing lawn Fci Goal (LTG) Pt to demonstrate pain-free overhead movement with bilateral shoulders in order to 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 Pt reported the shoulders feeling looser at the end of the session. Continue to working on scapular strengthening. Physical Therapy Plan Frequency and Duration Frequency of 2x/Week Treatment Plan of Care Start 02/10/25 Date Plan of Care End 04/12/25 Date Therapeutic Interventions Therapeutic Home Exercise Program,Joint Mobilizations,Manual Interventions Therapy,Patient/Caregiver Education,Self-Care/Home Management,Soft Tissue Mobilization,Taping,Therapeutic Activities,Therapeutic Exercises Next Visit Focus/Plan Next Note Type Treatment Note Next Visit Plan Joint mobs, STM, posture training, shoulder strengthening
--- NOTE | 2025-04-14 18:01 | PT.OTN ---
Addendum entered and electronically signed by Satish Arredondo, PT 04/15/25 09:39: PT direct supervision and direction to student PT Nikolas Costello throughout session Original Note: Current Diagnoses Pain in right shoulder (04/14/25) Other enthesopathies, not elsewhere classified (04/14/25) Physical Therapy Treatment Note PT-OP-A Visit Information Start: 02/10/25 17:53 Freq: Status: Active Protocol: Document 04/14/25 16:15 LFG (Rec: 04/14/25 10:07 LFG Laptop) Out-Patient Physical Therapy Visit Information Visit Information Visit Type Progress Note Visit Start Time 16:15 Visit Stop Time 16:39 Visit Number 5 Number of WASHATERIA ATTENDANT Visits 0 Evaluation Information Evaluation Date 02/10/25 PT-OP-B Current Condition Start: 02/10/25 17:53 Freq: Status: Active Protocol: Document 02/10/25 16:15 DCW (Rec: 02/10/25 18:12 DCW [id number]) Current Condition History of Current Condition Onset Date 1-2 year history Current Complaints Right>left shoulder pain History of Current Pt is a 40 year old male presenting with a 1-2 year Condition history of right>left shoulder pain. Pt reports there was no initial injury, it just exacerbate over time. Feels it was some combination of weights, pushups, and throwing the ball with his son. Reports pain is largely along his anterior and lateral shoulder, mainly pointing to his subacromial space. 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 Prior Treatments and Shoulder MRI: IMPRESSION: 1. Osseous edema surrounding Tests the acromioclavicular joint may be secondary to moderate to severe osteoarthrosis versus prior acromioclavicular separation injury, osseous contusion, or chronic repetitive stress. 2. Small subacromial/ subdeltoid bursal effusion or mild bursitis. 3. Mild supraspinatus and subscapularis tendinosis. No significant rotator cuff tendon tearing. 4. Mild proximal biceps long head tendinosis. 5. Partial effacement of the rotator interval fat and mild thickening of the inferior and middle glenohumeral ligaments are nonspecific, but can be seen in the setting of the clinical syndrome of adhesive capsulitis . per Henok Nolen M.D. on 12/17/2024 PT-OP-C Subjective Start: 02/10/25 17:53 Freq: Status: Active Protocol: Document 04/14/25 16:15 LFG (Rec: 04/14/25 10:07 LFG Laptop) OP-PT Subjective Patient Comments Patient Comments Pt reports still feeling some soreness like pain after playing pickleball and tossing the football around with his sons. Notes that sxs have improved since his first visit, where he could only toss the football around a few times before needing to stop due to soreness pain. PT-OP-F Manual Assessment Start: 02/10/25 17:53 Freq: Status: Active Protocol: Document 02/10/25 16:15 DCW (Rec: 02/10/25 18:12 DCW [id number]) Manual Assessments Joint Mobility Assessment Joint Mobility Mild step deformity at right a/c joint. Assessment PT-OP-J Posture/Palpation/Skin Start: 02/10/25 17:53 Freq: Status: Active Protocol: Document 04/14/25 16:15 LFG (Rec: 04/14/25 16:45 LFG Laptop) Posture Evaluation Comments Posture Comments Distance from medial border of scapula to spinous processes is equal bilaterally (8cm) . Distance from inferior border of scapula to spinous processes equal bilaterally (11.8cm). PT-OP-K Range of Motion Start: 02/10/25 17:53 Freq: Status: Active Protocol: Document 02/10/25 16:15 DCW (Rec: 02/10/25 18:12 DCW [id number]) Shoulder Goniometric Range of Motion Shoulder Right Active Shoulder ROM WFL Yes Testing Position Sitting Flexion 180 Abduction 180 Left Active Shoulder ROM WFL Yes Testing Position Sitting Flexion 180 Abduction 180 PT-OP-L Special Tests Start: 02/10/25 17:53 Freq: Status: Active Protocol: Document 04/14/25 16:15 LFG (Rec: 04/14/25 16:09 LFG Laptop) Special Tests Shoulder Special Tests Grind Labrum Test Results Negative Empty Can Test Results Negative Apprehension Test Test Results Negative AC Joint Compression Test Results Negative PT-OP-M Strength Start: 02/10/25 17:53 Freq: Status: Active Protocol: Document 02/10/25 16:15 DCW (Rec: 02/10/25 18:12 DCW [id number]) Shoulder Strength Shoulder Manual Muscle Testing Right Flexion 5 Normal Abduction (C5) 5 Normal External Rotation 5 Normal Internal Rotation 5 Normal Left Flexion 5 Normal Abduction (C5) 5 Normal External Rotation 5 Normal Internal Rotation 5 Normal PT-OP-Q Treatments Start: 02/10/25 17:53 Freq: Status: Active Protocol: Document 04/14/25 16:15 LFG (Rec: 04/14/25 10:08 LFG Laptop) Therapeutic Exercises Other Exercises special tests Other Exercise Name see above PT-OP-T Assessment and Plan Start: 02/10/25 17:53 Freq: Status: Active Protocol: Document 04/14/25 16:15 LFG (Rec: 04/14/25 10:07 LFG Laptop) Physical Therapy Assessment Impairments Impairments Pain,Posture,ROM,Soft Tissue Mobility,Strength Goals Two Impairment Pt experiences increased shoulder pain with overhead activities/mowing lawn 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 All previous special tests remain negative. Distance from scapula to spinous process has improved and are equal bilaterally. Pt still reports experiencing shoulder soreness/pain after activity but does not present with any notable impairments at this time. Pt agrees to continue and progress HEP independently. Physical Therapy Plan Frequency and Duration Frequency of 2x/Week Treatment Plan of Care Start 04/14/25 Date Plan of Care End 04/15/25 Date Therapeutic Interventions Therapeutic Home Exercise Program,Joint Mobilizations,Manual Interventions Therapy,Patient/Caregiver Education,Self-Care/Home Management,Soft Tissue Mobilization,Taping,Therapeutic Activities,Therapeutic Exercises Next Visit Focus/Plan Next Note Type Discharge Summary Next Visit Plan Continue/progress HEP independently. Discharge
--- NOTE | 2025-04-14 18:01 | PT.OPPOC ---
Addendum entered and electronically signed by Satish Arredondo, PT 04/15/25 09:39: PT direct supervision and direction to student PT Nikolas Costello throughout session Original Note: Physical, Occupational & Speech Therapy At [facility] Current Diagnoses Pain in right shoulder (04/14/25) Other enthesopathies, not elsewhere classified (04/14/25) Visit Care Team Role Provider Type Joseluis Jansen MD Attending Provider Physician Family Provider Primary Care Provider Referring Provider Specialty: Family Practice Address: [address] [place] [address], [facility] [address], [place], [facility] Email: [email or web address] Plan Of Care PT-OP-B Current Condition Start: 02/10/25 17:53 Freq: Status: Active Protocol: Document 02/10/25 16:15 DCW (Rec: 02/10/25 18:12 DCW [id number]) Current Condition History of Current Condition Onset Date 1-2 year history Current Complaints Right>left shoulder pain History of Current Pt is a 40 year old male presenting with a 1-2 year Condition history of right>left shoulder pain. Pt reports there was no initial injury, it just exacerbate over time. Feels it was some combination of weights, pushups, and throwing the ball with his son. Reports pain is largely along his anterior and lateral shoulder, mainly pointing to his subacromial space. 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 Prior Treatments and Shoulder MRI: IMPRESSION: 1. Osseous edema surrounding Tests the acromioclavicular joint may be secondary to moderate to severe osteoarthrosis versus prior acromioclavicular separation injury, osseous contusion, or chronic repetitive stress. 2. Small subacromial/ subdeltoid bursal effusion or mild bursitis. 3. Mild supraspinatus and subscapularis tendinosis. No significant rotator cuff tendon tearing. 4. Mild proximal biceps long head tendinosis. 5. Partial effacement of the rotator interval fat and mild thickening of the inferior and middle glenohumeral ligaments are nonspecific, but can be seen in the setting of the clinical syndrome of adhesive capsulitis . per Henok Nolen M.D. 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 All previous special tests remain negative. Distance from scapula to spinous process has improved and are equal bilaterally. Pt still reports experiencing shoulder soreness/pain after activity but does not present with any notable impairments at this time. Pt agrees to continue and progress HEP independently. Physical Therapy Plan Frequency and Duration Frequency of 2x/Week Treatment Plan of Care Start 04/14/25 Date Plan of Care End 04/15/25 Date Therapeutic Interventions Therapeutic Home Exercise Program,Joint Mobilizations,Manual Interventions Therapy,Patient/Caregiver Education,Self-Care/Home Management,Soft Tissue Mobilization,Taping,Therapeutic Activities,Therapeutic Exercises Next Visit Focus/Plan Next Note Type Discharge Summary Next Visit Plan Continue/progress HEP independently. Discharge Plan of Care Dates Plan of Care Start Date 04/14/25 Plan of Care End Date 04/15/25 Electronically Signed by: Nikolas Yeboah, PT 04/14/25 [id number] If you are in agreement with this Plan of Care, please return a signed and dated copy. I have reviewed this Plan of Care and certify that the skilled therapy services above are required to meet the patient?s needs. Physician Signature Date Printed Name and Credentials Clinical Instructor Signature Printed Name and Credentials
== END 2025-08-12 10:13 | disposition home or self-care (01) ==
LOC: PHYS 16:15
PROVIDERS: Family Provider Family Medicine; PCP Family Medicine; Referring Provider Family Medicine; Visit Provider Family Medicine
DX: M25.511 Pain in right shoulder (principal); M77.8 Other enthesopathies, not elsewhere classified
CPT/HCPCS: 97110; 97140; 97161